=== PATIENT | male | born 1965 | race African-American/Black ===

== ENCOUNTER 2017-12-16 13:56 | Inpatient (IN) | payer MEDICAID ==
[~2017-12-16] VITALS: Ht 162.6 cm; Wt 59.1 kg
[~2017-12-16 13:56] MED LIST: ASPI-1159 PO; AZIT500T5 PO; CALC667C4 PO; CLON0.3T PO; FOLI1TAB33 PO; HYDR100T31 PO; METO-539 PO; MINO2.5T19 PO; Metoprolol Tartrate PO; Nifedipine PO; PHEN100C12 PO; RANI150T7 PO
[2017-12-16] MEDS ORDERED: LIDOCAINE HCL/PF 1% 2ML VIAL ONE (14:04)
[2017-12-16 14:27] LABS: BASOPHILS % 0.6 % (0.0-2.0); EOSINOPHILS % 2.8 % (0.0-5.0); HEMATOCRIT. 34.2 % (42.0-52.0); HEMOGLOBIN. 10.6 g/dL (14.0-18.0); LYMPHOCYTES % 41.2 % (20.0-50.0); MEAN CORPUSCULAR HEMOGLOBIN 30.8 pg (28.0-32.0); MEAN CORPUSCULAR VOLUME 99.1 fL (80.0-94.0); MEAN PLATELET VOLUME 8.2 fl (7.4-10.4); MONOCYTES % 5.7 % (2.0-8.0); NEUTROPHILS % 49.7 % (40.0-76.0); PLATELET 248 x1000/uL (130-400); RED BLOOD CELL COUNT 3.45 mill/uL (4.7-6.1)
[2017-12-16 14:30] LABS: CHLORIDE 94 mEq/L (98-107)
[2017-12-16 14:57] LABS: BG BASE EXCESS -0.8 mmol/L (-2.0-2.0); BG BILEVEL POS AIRWAY PRESSURE ST=15/5; BG CARBOXYHEMOGLOBIN 2.1 % (0.5-1.5); BG DEOXYHEMOGLOBIN 10.2 % (0.0-5.0); BG FRACTION INSPIRED OXYGEN 80; BG HCO3 ACT 25.4 mmol/L (22.0-26.0); BG METHEMOGLOBIN 0.2 % (0.0-1.5); BG OXYGEN SATURATION 89.6 % (92.0-98.5); BG OXYHEMOGLOBIN 87.5 % (94.0-97.0); BG PCO2 49.3 mmHg (35.0-45.0); BG PO2 65.6 mmHg (75.0-100.0); BG PRESSURE SUPPORT 10; BG SAMPLE SITE RIGHT BRACHIAL; BG VENT MODE MASK - BIPAP; BG VENT RATE 14 set
[2017-12-16] MEDS ORDERED: CLONIDINE 0.1MG TABLET PO PRN (16:30)
[2017-12-16] MEDS ORDERED: GUAIFENESIN 200MG/10ML SUGAR FREE UDC PO PRN (16:30)
[2017-12-16] MEDS ORDERED: HYDROMORPHONE HCL/PF 2MG/ML CPJ IV PRN (16:30)
[2017-12-16] MEDS ORDERED: NA PHOS,M-B/NA PHOS,DI-BA ENEMA 118ML PR PRN (16:30)
[2017-12-16] MEDS ORDERED: ENOXAPARIN 40MG/0.4ML SYR SUBCUT SCH (16:30)
[2017-12-16] MEDS ORDERED: IPRATROPIUM/ALBUTEROL 0.5-3(2.5)MG/3ML NEB INH PRN (16:30)
[2017-12-16] MEDS ORDERED: DIPHENHYDRAMINE 50MG/ML VIAL IV PRN (16:30)
[2017-12-16] MEDS ORDERED: MAGNESIUM/ALUMINUM HYDROXIDE/SIMETHICONE 30ML UDC PO PRN (16:30)
[2017-12-16] MEDS ORDERED: LEVOFLOXACIN 500MG PREMIX 100 ML IV SCH ×2 (16:30→20:00)
[2017-12-16] MEDS ORDERED: DOCUSATE SODIUM 100MG CAPSULE PO PRN (16:30)
[2017-12-16] MEDS ORDERED: ONDANSETRON HCL 4MG/2ML INJ IV PRN (16:30)
[2017-12-16] MEDS ORDERED: ACETAMINOPHEN 325MG TABLET PO PRN (16:30)
[2017-12-16 16:45] VITALS: BP 156/88
[2017-12-16 18:00] VITALS: BP 157/92
[2017-12-16 18:58] LABS: BG BASE EXCESS -0.6 mmol/L (-2.0-2.0); BG BILEVEL POS AIRWAY PRESSURE 15/5; BG CARBOXYHEMOGLOBIN 1.9 % (0.5-1.5); BG DEOXYHEMOGLOBIN 13.4 % (0.0-5.0); BG FRACTION INSPIRED OXYGEN 70; BG HCO3 ACT 24.1 mmol/L (22.0-26.0); BG METHEMOGLOBIN 0.1 % (0.0-1.5); BG OXYGEN SATURATION 86.3 % (92.0-98.5); BG OXYHEMOGLOBIN 84.6 % (94.0-97.0); BG PCO2 39.5 mmHg (35.0-45.0); BG PH 7.403 (7.350-7.450); BG PO2 55.8 mmHg (75.0-100.0); BG SAMPLE SITE RIGHT BRACHIAL; BG TOTAL HEMOGLOBIN 9.2 g/dL (12.0-18.0); BG VENT MODE S/T
[2017-12-16 20:00] VITALS: BP 169/98
[2017-12-16 22:00] VITALS: BP 189/98
[2017-12-16] MEDS: ENOXAPARIN 30MG/0.3ML SYR SUBCUT SCH (23:00)
[2017-12-17] VITALS (11 sets, daily range): BP systolic 132–157; BP diastolic 61–88
[2017-12-17] MEDS: IPRATROPIUM/ALBUTEROL 0.5-3(2.5)MG/3ML NEB HHN SCH ×7 (00:49→20:19)
[2017-12-17 06:16] LABS: EOSINOPHILS % 0.5 % (0.0-5.0); HEMATOCRIT. 25.4 % (42.0-52.0); HEMOGLOBIN. 8.4 g/dL (14.0-18.0); LYMPHOCYTES % 13.7 % (20.0-50.0); MEAN CORPUSCULAR HEMOGLOBIN 31.2 pg (28.0-32.0); MEAN CORPUSCULAR VOLUME 94.8 fL (80.0-94.0); MEAN PLATELET VOLUME 8.2 fl (7.4-10.4); MONOCYTES % 6.4 % (2.0-8.0); NEUTROPHILS % 78.4 % (40.0-76.0); PLATELET 176 x1000/uL (130-400); RED BLOOD CELL COUNT 2.68 mill/uL (4.7-6.1); RED CELL DISTRIBUTION WIDTH 17.9 % (11.6-14.6)
[2017-12-17 06:22] LABS: CHLORIDE 97 mEq/L (98-107)
[2017-12-17 06:36] LABS: LDL CHOLESTEROL 53 mg/dL (5-100)
[2017-12-17 06:37] LABS: HDL CHOLESTEROL 35 mg/dL (40-59); T4 FREE 1.22 ng/dL (0.76-1.46)
[2017-12-17] MEDS: BUDESONIDE 0.5MG/2ML NEB HHN SCH ×3 (08:42→20:19)
[2017-12-17] MEDS: ASPIRIN 81MG EC TABLET PO SCH (09:01)
[2017-12-17 11:58] LABS: BG BASE EXCESS 3.1 mmol/L (-2.0-2.0); BG CARBOXYHEMOGLOBIN 0.7 % (0.5-1.5); BG DEOXYHEMOGLOBIN 8.6 % (0.0-5.0); BG HCO3 ACT 27.8 mmol/L (22.0-26.0); BG METHEMOGLOBIN 0.2 % (0.0-1.5); BG OXYGEN SATURATION 91.3 % (92.0-98.5); BG OXYHEMOGLOBIN 90.5 % (94.0-97.0); BG PCO2 43.1 mmHg (35.0-45.0); BG PH 7.427 (7.350-7.450); BG PO2 66.4 mmHg (75.0-100.0); BG SAMPLE SITE RIGHT BRACHIAL; BG TOTAL HEMOGLOBIN 8.4 g/dL (12.0-18.0); BG VENT MODE MASK - VENTI
[2017-12-17] MEDS ORDERED: LIDOCAINE HCL/PF 1% 2ML VIAL ONE (14:01)
[2017-12-17] MEDS: HYDROCODONE/ACETAMINOPHEN 5/325MG TABLET PO PRN (14:57)
[2017-12-17] MEDS: ENOXAPARIN 30MG/0.3ML SYR SUBCUT SCH (20:25)
[2017-12-17] MEDS: HYDRALAZINE HCL 25MG TABLET PO SCH (23:02)
[2017-12-17] MEDS: CLONIDINE 0.1MG TABLET PO SCH (23:03)
[2017-12-18] VITALS (13 sets, daily range): BP systolic 103–150; BP diastolic 57–83
[2017-12-18] MEDS: IPRATROPIUM/ALBUTEROL 0.5-3(2.5)MG/3ML NEB HHN SCH ×6 (00:14→20:09)
[2017-12-18] MEDS: HYDRALAZINE HCL 25MG TABLET PO SCH ×3 (06:32→21:18)
[2017-12-18] MEDS: CLONIDINE 0.1MG TABLET PO SCH ×3 (06:32→21:18)
[2017-12-18] MEDS: BUDESONIDE 0.5MG/2ML NEB HHN SCH ×2 (07:35→20:09)
[2017-12-18] MEDS: NIFEDIPINE XL 60MG TAB PO SCH (09:38)
[2017-12-18] MEDS: ASPIRIN 81MG EC TABLET PO SCH (09:38)
[2017-12-18] MEDS: HYDROCODONE/ACETAMINOPHEN 5/325MG TABLET PO PRN ×3 (10:11→21:31)
[2017-12-18] MEDS ORDERED: LEVOFLOXACIN 250MG PREMIX 50 ML IV SCH (11:00)
[2017-12-18] MEDS: ENOXAPARIN 30MG/0.3ML SYR SUBCUT SCH (21:00)
[2017-12-18] MEDS: LORAZEPAM 2MG/ML CPJ IV PRN (21:31)
[2017-12-19] VITALS (11 sets, daily range): BP systolic 117–165; BP diastolic 66–91
[2017-12-19] MEDS: IPRATROPIUM/ALBUTEROL 0.5-3(2.5)MG/3ML NEB HHN SCH ×6 (00:16→20:21)
[2017-12-19] MEDS: HYDRALAZINE HCL 25MG TABLET PO SCH ×3 (06:00→22:00)
[2017-12-19] MEDS: CLONIDINE 0.1MG TABLET PO SCH ×3 (06:00→22:00)
[2017-12-19] MEDS: BUDESONIDE 0.5MG/2ML NEB HHN SCH ×2 (08:08→20:29)
[2017-12-19] MEDS: HYDROCODONE/ACETAMINOPHEN 5/325MG TABLET PO PRN ×2 (08:10→18:37)
[2017-12-19 10:32] LABS: EOSINOPHILS % 8.9 % (0.0-5.0); HEMATOCRIT. 23.2 % (42.0-52.0); HEMOGLOBIN. 7.7 g/dL (14.0-18.0); LYMPHOCYTES % 16.4 % (20.0-50.0); MEAN CORPUSCULAR HEMOGLOBIN 30.9 pg (28.0-32.0); MEAN CORPUSCULAR VOLUME 93.5 fL (80.0-94.0); MEAN PLATELET VOLUME 7.7 fl (7.4-10.4); MONOCYTES % 8.1 % (2.0-8.0); NEUTROPHILS % 65.6 % (40.0-76.0); PLATELET 205 x1000/uL (130-400); RED BLOOD CELL COUNT 2.48 mill/uL (4.7-6.1); RED CELL DISTRIBUTION WIDTH 17.6 % (11.6-14.6)
[2017-12-19] MEDS: ASPIRIN 81MG EC TABLET PO SCH (16:50)
[2017-12-19] MEDS: NIFEDIPINE XL 60MG TAB PO SCH (16:51)
[2017-12-19] MEDS: ENOXAPARIN 30MG/0.3ML SYR SUBCUT SCH (21:14)
[2017-12-20] VITALS (10 sets, daily range): BP systolic 114–142; BP diastolic 62–77
[2017-12-20] MEDS: IPRATROPIUM/ALBUTEROL 0.5-3(2.5)MG/3ML NEB HHN SCH ×4 (00:06→11:58)
[2017-12-20] MEDS: LORAZEPAM 2MG/ML CPJ IV PRN (01:19)
[2017-12-20] MEDS: CLONIDINE 0.1MG TABLET PO SCH ×2 (06:00→12:24)
[2017-12-20] MEDS: HYDRALAZINE HCL 25MG TABLET PO SCH ×2 (06:00→12:25)
[2017-12-20 06:41] LABS: BASOPHILS % 1.1 % (0.0-2.0); EOSINOPHILS % 10.2 % (0.0-5.0); HEMATOCRIT. 24.1 % (42.0-52.0); LYMPHOCYTES % 20.9 % (20.0-50.0); MEAN CORPUSCULAR HEMOGLOBIN 31.1 pg (28.0-32.0); MEAN CORPUSCULAR VOLUME 94.1 fL (80.0-94.0); MEAN PLATELET VOLUME 7.8 fl (7.4-10.4); MONOCYTES % 8.8 % (2.0-8.0); PLATELET 227 x1000/uL (130-400); RED BLOOD CELL COUNT 2.56 mill/uL (4.7-6.1); RED CELL DISTRIBUTION WIDTH 17.6 % (11.6-14.6)
[2017-12-20] MEDS: ASPIRIN 81MG EC TABLET PO SCH (09:52)
[2017-12-20] MEDS: NIFEDIPINE XL 60MG TAB PO SCH (09:52)
[2017-12-20] MEDS ORDERED: LEVOFLOXACIN 250MG TABLET PO SCH (11:00)
[2017-12-20] MEDS: HYDROCODONE/ACETAMINOPHEN 5/325MG TABLET PO PRN (12:25)
== END 2017-12-20 15:30 | disposition home or self-care (01) | DRG 425 ==
LOC: ER 13:56 → EDBEDREQSVC 14:57 → 5EST 15:28 → EDBEDREQ 15:30 → ENRESERV 15:48
PROVIDERS: ADMIT Internal Medicine; ATTEND Internal Medicine
PROC: 5A09357 Assistance with Respiratory Ventilation, Less than 24 Consecutive Hours, Continuous Positive Airway Pressure (ICD-10-PCS; principal; 2017-12-16)
PROC: 5A1D70Z Performance of Urinary Filtration, Intermittent, Less than 6 Hours Per Day (ICD-10-PCS; 2017-12-16)
PROC: 5A09357 Assistance with Respiratory Ventilation, Less than 24 Consecutive Hours, Continuous Positive Airway Pressure (ICD-10-PCS; 2017-12-17)
PROC: 5A1D70Z Performance of Urinary Filtration, Intermittent, Less than 6 Hours Per Day (ICD-10-PCS; 2017-12-17)
PROC: 5A1D70Z Performance of Urinary Filtration, Intermittent, Less than 6 Hours Per Day (ICD-10-PCS; 2017-12-19)
DX: E87.5 Hyperkalemia (principal); J96.01 Acute respiratory failure with hypoxia; I13.2 Hypertensive heart and chronic kidney disease with heart failure and with stage 5 chronic kidney disease, or end stage renal disease; E87.2 Acidosis; R65.10 Systemic inflammatory response syndrome (SIRS) of non-infectious origin without acute organ dysfunction; J96.02 Acute respiratory failure with hypercapnia; E46 Unspecified protein-calorie malnutrition; N18.6 End stage renal disease; Z86.74 Personal history of sudden cardiac arrest; I50.9 Heart failure, unspecified; D64.9 Anemia, unspecified; G40.909 Epilepsy, unspecified, not intractable, without status epilepticus; I25.10 Atherosclerotic heart disease of native coronary artery without angina pectoris; K21.9 Gastro-esophageal reflux disease without esophagitis; Z79.82 Long term (current) use of aspirin; Z82.49 Family history of ischemic heart disease and other diseases of the circulatory system; Z86.73 Personal history of transient ischemic attack (TIA), and cerebral infarction without residual deficits; Z99.2 Dependence on renal dialysis; I25.2 Old myocardial infarction; Z88.8 Allergy status to other drugs, medicaments and biological substances; Z88.0 Allergy status to penicillin; Z79.2 Long term (current) use of antibiotics; Z79.899 Other long term (current) drug therapy; Z68.22 Body mass index [BMI] 22.0-22.9, adult
CPT/HCPCS: 36415; 36600; 71045; 80048; 80053; 80061; 82375; 82805; 83880; 84439; 84443; 84484; 85025; 93005; 93306; 94640; 94660; 99291; J1170; J1650; J1956; J2060; J3490; J7030; J7050; J7620; J7626

== ENCOUNTER 2018-01-15 19:57 | Inpatient (IN) | payer MEDICAID ==
[~2018-01-15] VITALS: Ht 162.6 cm; Wt 57.2 kg
[2018-01-16] VITALS (7 sets, daily range): BP systolic 95–143; BP diastolic 35–70
[2018-01-16] MEDS ORDERED: SODIUM CHLORIDE 0.9% 500 ML IV ONE (00:09)
[2018-01-16] MEDS ORDERED: VANCOMYCIN 1 G PREMIX 200 ML IV ONE (00:15)
[2018-01-16] MEDS ORDERED: LEVOFLOXACIN 750MG PREMIX 150 ML IV ONE (00:15)
[2018-01-16] MEDS ORDERED: LEVETIRACETAM 500MG PREMIX 100 ML IV ONE (00:30)
[2018-01-16 01:38] LABS: BASOPHILS % 1.4 % (0.0-2.0); HEMATOCRIT. 31.7 % (42.0-52.0); HEMOGLOBIN. 10.3 g/dL (14.0-18.0); LYMPHOCYTES % 28.2 % (20.0-50.0); MEAN CORPUSCULAR HEMOGLOBIN 29.9 pg (28.0-32.0); MEAN CORPUSCULAR VOLUME 92.5 fL (80.0-94.0); MEAN PLATELET VOLUME 7.4 fl (7.4-10.4); MONOCYTES % 9.9 % (2.0-8.0); NEUTROPHILS % 54.5 % (40.0-76.0); PLATELET 245 x1000/uL (130-400); RED BLOOD CELL COUNT 3.43 mill/uL (4.7-6.1); RED CELL DISTRIBUTION WIDTH 17.2 % (11.6-14.6)
[2018-01-16 01:47] LABS: INR 1.2; PROTHROMBIN TIME 11.7 sec (9.1-11.1)
[2018-01-16 01:51] LABS: CHLORIDE 98 mEq/L (98-107); ETHANOL BLOOD < 10 mg/dL
[2018-01-16] MEDS ORDERED: GABA300S PO (04:12)
[2018-01-16] MEDS ORDERED: HYDR-3280 PO (04:12)
[2018-01-16] MEDS ORDERED: CLONIDINE 0.1MG TABLET PO PRN (05:15)
[2018-01-16 08:29] LABS: HEMATOCRIT 31.5 % (42.0-52.0); HEMOGLOBIN 10.2 g/dL (14.0-18.0); MEAN CORPUSCULAR VOLUME 92.1 fL (80.0-94.0); PLATELET 223 x1000/uL (130-400); RED BLOOD CELL COUNT 3.42 mill/uL (4.7-6.1); RED CELL DISTRIBUTION WIDTH 17.4 % (11.6-14.6)
[2018-01-16] MEDS: HEPARIN 5000 UNITS/ML VIAL SUBCUT SCH ×2 (08:37→21:00)
[2018-01-16 08:44] LABS: CREATINE KINASE MB FRACTION 3.4 ng/mL (0.5-3.6)
[2018-01-16] MEDS: HYDROCODONE/ACETAMINOPHEN 5/325MG TABLET PO PRN ×2 (08:44→20:10)
[2018-01-16] MEDS ORDERED: AZITHROMYCIN 500 MG TABLET PO SCH (13:00)
[2018-01-16] MEDS: GABAPENTIN 100MG CAPSULE PO SCH (13:33)
[2018-01-16] MEDS: PHENYTOIN SODIUM EXTENDED 100MG CAPSULE PO SCH (13:33)
[2018-01-16] MEDS: HYDRALAZINE HCL 100MG TABLET PO SCH ×2 (13:34→21:24)
[2018-01-16] MEDS: CALCIUM ACETATE 667MG CAPSULE PO SCH ×2 (13:34→18:10)
[2018-01-16 15:40] LABS: CREATINE KINASE MB FRACTION 3.3 ng/mL (0.5-3.6)
[2018-01-16 16:47] LABS: *AMPHETAMINES SCREEN URINE NEGATIVE (NEGATIVE); *BARBITURATES SCREEN URINE NEGATIVE (NEGATIVE); *BENZODIAZEPINES SCREEN URINE NEGATIVE (NEGATIVE); *COCAINE SCREEN URINE NEGATIVE (NEGATIVE); CANNABINOID URINE SCREEN PRESUMTIVE POSITIVE (NEGATIVE); METHADONE URINE SCREEN NEGATIVE (NEGATIVE); OPIATES URINE SCREEN PRESUMTIVE POSITIVE (NEGATIVE); PHENCYCLIDINE URINE SCREEN NEGATIVE (NEGATIVE)
[2018-01-16] MEDS: NIFEDIPINE XL 60MG TAB PO SCH (21:00)
[2018-01-16] MEDS: METOPROLOL TARTRATE 50MG TABLET PO SCH (21:22)
[2018-01-17] VITALS (7 sets, daily range): BP systolic 109–137; BP diastolic 40–68
[2018-01-17 00:14] LABS: CREATINE KINASE 27 IU/L (39-308)
[2018-01-17] MEDS: GABAPENTIN 100MG CAPSULE PO SCH ×3 (04:06→14:17)
[2018-01-17] MEDS: HYDRALAZINE HCL 100MG TABLET PO SCH ×2 (05:28→14:17)
[2018-01-17 07:07] LABS: CHLORIDE 97 mEq/L (98-107)
[2018-01-17 07:09] LABS: BASOPHILS % 1.3 % (0.0-2.0); EOSINOPHILS % 7.8 % (0.0-5.0); HEMATOCRIT. 33.1 % (42.0-52.0); HEMOGLOBIN. 10.7 g/dL (14.0-18.0); LYMPHOCYTES % 34.8 % (20.0-50.0); MEAN CORPUSCULAR HEMOGLOBIN 29.6 pg (28.0-32.0); MEAN CORPUSCULAR VOLUME 91.2 fL (80.0-94.0); MEAN PLATELET VOLUME 7.7 fl (7.4-10.4); NEUTROPHILS % 43.1 % (40.0-76.0); PLATELET 240 x1000/uL (130-400); RED BLOOD CELL COUNT 3.62 mill/uL (4.7-6.1); RED CELL DISTRIBUTION WIDTH 17.1 % (11.6-14.6)
[2018-01-17 07:25] LABS: HDL CHOLESTEROL 44 mg/dL (40-59); LDL CHOLESTEROL 64 mg/dL (5-100)
[2018-01-17] MEDS: CALCIUM ACETATE 667MG CAPSULE PO SCH ×2 (07:50→11:54)
[2018-01-17] MEDS: METOPROLOL TARTRATE 50MG TABLET PO SCH (08:40)
[2018-01-17] MEDS: NIFEDIPINE XL 60MG TAB PO SCH (08:40)
[2018-01-17] MEDS ORDERED: ASPIRIN 81MG TABLET PO SCH (09:00)
[2018-01-17] MEDS ORDERED: MINOXIDIL 2.5MG TABLET PO SCH (09:00)
[2018-01-17] MEDS: HEPARIN 5000 UNITS/ML VIAL SUBCUT SCH (09:00)
[2018-01-17] MEDS: PHENYTOIN SODIUM EXTENDED 100MG CAPSULE PO SCH (11:54)
[2018-01-17] MEDS: HYDROCODONE/ACETAMINOPHEN 5/325MG TABLET PO PRN (12:01)
== END 2018-01-17 16:50 | disposition home or self-care (01) | DRG 203 ==
LOC: ER 19:57 → 6WST 01-16 02:07 → EDBEDREQSVC 01-16 02:10 → EDBEDREQTM 01-16 02:10 → EDBEDREQ 01-16 02:10 → ENRESERV 01-16 02:21
PROVIDERS: ADMIT Internal Medicine; ATTEND Internal Medicine
PROC: 5A1D70Z Performance of Urinary Filtration, Intermittent, Less than 6 Hours Per Day (ICD-10-PCS; principal; 2018-01-17)
DX: R07.89 Other chest pain (principal); E43 Unspecified severe protein-calorie malnutrition; I13.2 Hypertensive heart and chronic kidney disease with heart failure and with stage 5 chronic kidney disease, or end stage renal disease; N18.6 End stage renal disease; I50.30 Unspecified diastolic (congestive) heart failure; J98.11 Atelectasis; E78.00 Pure hypercholesterolemia, unspecified; G40.909 Epilepsy, unspecified, not intractable, without status epilepticus; D63.1 Anemia in chronic kidney disease; Z68.21 Body mass index [BMI] 21.0-21.9, adult; Z88.0 Allergy status to penicillin; Z88.8 Allergy status to other drugs, medicaments and biological substances; Z99.2 Dependence on renal dialysis; Z79.82 Long term (current) use of aspirin; Z79.899 Other long term (current) drug therapy; Z86.73 Personal history of transient ischemic attack (TIA), and cerebral infarction without residual deficits
CPT/HCPCS: 36415; 71045; 80048; 80061; 80305; 82550; 82553; 82962; 83605; 83735; 83880; 84145; 84484; 85027; 85379; 87077; 87186; 93005; 96365; 96367; 99285; G0482; J1644; J1953; J1956; J3370; J7030; J7040

== ENCOUNTER 2018-02-19 08:33 | Inpatient (IN) | payer MEDICAID ==
[~2018-02-19] VITALS: Ht 152.4 cm; Wt 58.5 kg
[~2018-02-19 08:33] MED LIST changes: +GABA300S PO; +HYDR-3280 PO
[2018-02-19] MEDS ORDERED: VANCOMYCIN 1 G PREMIX 200 ML IV ONE (09:30)
[2018-02-19] MEDS ORDERED: AZTREONAM 2 GM in DEXT 5% WATER 100 ML IV SCH ×2 (09:30→11:30)
[2018-02-19 10:10] LABS: HEMOGLOBIN. 12.2 g/dL (14.0-18.0); MEAN CORPUSCULAR HEMOGLOBIN 28.6 pg (28.0-32.0); MEAN PLATELET VOLUME 8.1 fl (7.4-10.4); PLATELET 184 x1000/uL (130-400); RED BLOOD CELL COUNT 4.27 mill/uL (4.7-6.1); RED CELL DISTRIBUTION WIDTH 17.8 % (11.6-14.6)
[2018-02-19 10:14] LABS: CHLORIDE 93 mEq/L (98-107)
[2018-02-19 10:20] LABS: INR 1.2; PROTHROMBIN TIME 12.4 sec (9.1-11.1)
[2018-02-19 11:20] LABS: PLATELET ESTIMATE NORMAL
[2018-02-19] MEDS ORDERED: LEVOFLOXACIN 250MG PREMIX 50 ML IV NR (11:30)
[2018-02-19] MEDS ORDERED: SODIUM POLYSTYRENE SULFONATE 15 G/60 ML BOT PO ONE (12:00)
[2018-02-19] MEDS ORDERED: SODIUM BICARBONATE 8.4% 1 MEQ/ML 50ML SYR IV ONE (12:00)
[2018-02-19] MEDS ORDERED: CALCIUM CHLORIDE 1GM/10ML SYR IV ONE (12:00)
[2018-02-19] MEDS ORDERED: INSULIN REGULAR (HUMULIN R) 300UNITS/3ML IV ONE (12:00)
[2018-02-19] MEDS ORDERED: DEXTROSE 50% WATER 50ML SYRINGE IV ONE ×3 (12:00→14:33)
[2018-02-19 16:00] VITALS: BP 159/78
[2018-02-19 17:15] VITALS: BP 159/78
[2018-02-19] MEDS ORDERED: ONDANSETRON HCL 4MG/2ML INJ IV PRN (17:15)
[2018-02-19] MEDS ORDERED: ACETAMINOPHEN 325MG TABLET PO PRN (17:15)
[2018-02-19 20:00] VITALS: BP 141/67
[2018-02-20 07:31] LABS: HEMATOCRIT. 38.5 % (42.0-52.0); HEMOGLOBIN. 12.3 g/dL (14.0-18.0); MEAN CORPUSCULAR HEMOGLOBIN 28.4 pg (28.0-32.0); MEAN CORPUSCULAR VOLUME 89.1 fL (80.0-94.0); PLATELET 171 x1000/uL (130-400); RED BLOOD CELL COUNT 4.32 mill/uL (4.7-6.1); RED CELL DISTRIBUTION WIDTH 16.9 % (11.6-14.6)
[2018-02-20 08:00] VITALS: BP 147/74
[2018-02-20 12:00] VITALS: BP 154/85
[2018-02-20 12:46] LABS: PLATELET ESTIMATE NORMAL
[2018-02-20] MEDS ORDERED: KEPPSOL MT (14:59)
[2018-02-20 16:00] VITALS: BP 163/90
[2018-02-20] MEDS: CLONIDINE 0.3MG TABLET PO SCH (18:16)
[2018-02-20] MEDS: GABAPENTIN 100MG CAPSULE PO SCH (18:16)
[2018-02-20] MEDS: FOLIC ACID/VITAMIN B COMP W-C TABLET PO SCH (18:16)
[2018-02-20] MEDS: CALCIUM ACETATE 667MG CAPSULE PO SCH (18:17)
[2018-02-20] MEDS: ASPIRIN 81MG TABLET PO SCH (20:41)
[2018-02-20] MEDS: METOPROLOL TARTRATE 50MG TABLET PO SCH (20:42)
[2018-02-20] MEDS: LEVETIRACETAM 250MG TABLET PO SCH (20:42)
[2018-02-20] MEDS: HYDRALAZINE HCL 50MG TABLET PO SCH (20:42)
[2018-02-20] MEDS ORDERED: HYDRALAZINE HCL 100 MG PO SCH (22:00)
[2018-02-21] MEDS: HYDRALAZINE HCL 50MG TABLET PO SCH ×2 (05:56→14:31)
[2018-02-21] MEDS: HYDROCODONE/ACETAMINOPHEN 5/325MG TABLET PO PRN ×2 (06:49→12:56)
[2018-02-21 08:00] VITALS: BP 124/56
[2018-02-21 08:40] VITALS: BP 124/56
[2018-02-21] MEDS ORDERED: MINOXIDIL 2.5MG TABLET PO SCH (09:00)
[2018-02-21] MEDS: ASPIRIN 81MG TABLET PO SCH (09:11)
[2018-02-21] MEDS: CALCIUM ACETATE 667MG CAPSULE PO SCH ×2 (09:11→12:55)
[2018-02-21] MEDS: LEVETIRACETAM 250MG TABLET PO SCH (09:11)
[2018-02-21] MEDS: GABAPENTIN 100MG CAPSULE PO SCH ×2 (09:11→12:55)
[2018-02-21] MEDS: CLONIDINE 0.3MG TABLET PO SCH ×2 (09:12→12:55)
[2018-02-21] MEDS: FOLIC ACID/VITAMIN B COMP W-C TABLET PO SCH (09:12)
[2018-02-21] MEDS: METOPROLOL TARTRATE 50MG TABLET PO SCH (09:12)
[2018-02-21] MEDS ORDERED: LEVOFLOXACIN 250MG PREMIX 50 ML IV SCH (11:00)
[2018-02-21 12:36] VITALS: BP 122/68
[2018-02-21] MEDS ORDERED: LEVOFLOXACIN 250MG PREMIX 50 ML IV NR (14:00)
[2018-02-21 14:44] VITALS: BP 130/70
== END 2018-02-21 16:50 | disposition home or self-care (01) | DRG 145 ==
LOC: ER 08:33 → 6WST 12:41 → ENRESERV 15:36
PROVIDERS: ADMIT Internal Medicine; ATTEND Internal Medicine
PROC: 5A1D70Z Performance of Urinary Filtration, Intermittent, Less than 6 Hours Per Day (ICD-10-PCS; principal; 2018-02-19)
PROC: 5A1D70Z Performance of Urinary Filtration, Intermittent, Less than 6 Hours Per Day (ICD-10-PCS; 2018-02-21)
DX: J20.9 Acute bronchitis, unspecified (principal); I13.2 Hypertensive heart and chronic kidney disease with heart failure and with stage 5 chronic kidney disease, or end stage renal disease; E87.5 Hyperkalemia; N18.6 End stage renal disease; D64.9 Anemia, unspecified; D72.825 Bandemia; G40.909 Epilepsy, unspecified, not intractable, without status epilepticus; I16.0 Hypertensive urgency; I50.9 Heart failure, unspecified; Z86.73 Personal history of transient ischemic attack (TIA), and cerebral infarction without residual deficits; Z99.2 Dependence on renal dialysis; Z88.0 Allergy status to penicillin; Z88.8 Allergy status to other drugs, medicaments and biological substances
CPT/HCPCS: 36415; 71045; 80048; 82962; 83605; 84145; 84484; 87804; 93005; 96365; 96366; 96367; 96375; 99285; J1815; J1956; J3370; J3490; J7050; J7060

== ENCOUNTER 2018-03-17 11:06 | Emergency (ER) | payer MEDICAID ==
[~2018-03-17] VITALS: Ht 162.6 cm; Wt 59.0 kg
[~2018-03-17 11:06] MED LIST changes: -AZIT500T5 PO; +KEPPSOL MT; -METO-539 PO; -Nifedipine PO; -PHEN100C12 PO; -RANI150T7 PO
[2018-03-17 12:47] LABS: BASOPHILS % 0.8 % (0.0-2.0); EOSINOPHILS % 3.1 % (0.0-5.0); HEMATOCRIT. 44.6 % (42.0-52.0); HEMOGLOBIN. 13.9 g/dL (14.0-18.0); LYMPHOCYTES % 21.8 % (20.0-50.0); MEAN CORPUSCULAR HEMOGLOBIN 27.4 pg (28.0-32.0); MEAN CORPUSCULAR VOLUME 87.8 fL (80.0-94.0); MONOCYTES % 10.6 % (2.0-8.0); NEUTROPHILS % 63.7 % (40.0-76.0); PLATELET 161 x1000/uL (130-400); RED BLOOD CELL COUNT 5.08 mill/uL (4.7-6.1); RED CELL DISTRIBUTION WIDTH 18.5 % (11.6-14.6)
[2018-03-17 12:48] LABS: CHLORIDE 90 mEq/L (98-107)
[2018-03-17 12:51] LABS: INR 1.2
[2018-03-17] MEDS ORDERED: IOHEXOL-300 100 ML BOTTLE ONE (18:26)
[2018-03-17 21:47] VITALS: BP 141/81
== END 2018-03-18 01:32 | disposition home or self-care (01) ==
LOC: ER 11:06
DX: K59.09 Other constipation (principal); E87.2 Acidosis; I13.2 Hypertensive heart and chronic kidney disease with heart failure and with stage 5 chronic kidney disease, or end stage renal disease; N18.6 End stage renal disease; I50.9 Heart failure, unspecified; G40.909 Epilepsy, unspecified, not intractable, without status epilepticus; Z99.2 Dependence on renal dialysis; Z86.73 Personal history of transient ischemic attack (TIA), and cerebral infarction without residual deficits; Z87.891 Personal history of nicotine dependence; Z88.8 Allergy status to other drugs, medicaments and biological substances; Z88.0 Allergy status to penicillin; Z79.899 Other long term (current) drug therapy; Z79.82 Long term (current) use of aspirin
CPT/HCPCS: 36415; 74018; 74177; 80053; 83605; 83690; 84484; 85025; 85610; 93005; 99284; Q9967

== ENCOUNTER 2018-09-11 13:22 | Inpatient (IN) | payer MEDICAID ==
[~2018-09-11] VITALS: Ht 170.2 cm; Wt 63.0 kg
[~2018-09-11 13:22] MED LIST changes: -ASPI-1159 PO; +ASPI-1393 PO
[2018-09-11] MEDS ORDERED: ONDANSETRON HCL 4MG/2ML INJ IV STA (15:48)
[2018-09-11] MEDS ORDERED: SODIUM CHLORIDE 0.9% 500 ML IV ONE (16:00)
[2018-09-11 16:24] LABS: BASOPHILS % 0.9 % (0.0-2.0); EOSINOPHILS % 2.8 % (0.0-5.0); HEMOGLOBIN. 10.1 g/dL (14.0-18.0); LYMPHOCYTES % 17.2 % (20.0-50.0); MEAN PLATELET VOLUME 8.7 fl (7.4-10.4); NEUTROPHILS % 66.1 % (40.0-76.0); PLATELET 133 x1000/uL (130-400); RED BLOOD CELL COUNT 3.49 mill/uL (4.7-6.1); RED CELL DISTRIBUTION WIDTH 16.1 % (11.6-14.6)
[2018-09-11 16:27] LABS: CHLORIDE 94 mEq/L (98-107)
[2018-09-11 16:28] LABS: INR 1.1; PROTHROMBIN TIME 11.3 sec (9.6-11.0)
[2018-09-11 20:00] VITALS: BP 116/54
[2018-09-11] MEDS ORDERED: GUAIFENESIN 200MG/10ML SUGAR FREE UDC PO PRN (21:45)
[2018-09-11] MEDS ORDERED: MAGNESIUM/ALUMINUM HYDROXIDE/SIMETHICONE 30ML UDC PO PRN (21:45)
[2018-09-11 22:00] VITALS: BP 116/54
[2018-09-11] MEDS ORDERED: LEVOFLOXACIN 500MG PREMIX 100 ML IV SCH (23:00)
[2018-09-12] VITALS: BP 118/62
[2018-09-12 04:00] VITALS: BP 133/61
[2018-09-12 06:27] LABS: BASOPHILS % 0.7 % (0.0-2.0); EOSINOPHILS % 2.1 % (0.0-5.0); HEMATOCRIT. 26.8 % (42.0-52.0); HEMOGLOBIN. 8.9 g/dL (14.0-18.0); LYMPHOCYTES % 11.7 % (20.0-50.0); MEAN CORPUSCULAR HEMOGLOBIN 29.4 pg (28.0-32.0); MEAN CORPUSCULAR VOLUME 89.1 fL (80.0-94.0); MEAN PLATELET VOLUME 8.7 fl (7.4-10.4); MONOCYTES % 10.2 % (2.0-8.0); NEUTROPHILS % 75.3 % (40.0-76.0); PLATELET 115 x1000/uL (130-400); RED BLOOD CELL COUNT 3.01 mill/uL (4.7-6.1); RED CELL DISTRIBUTION WIDTH 16.2 % (11.6-14.6)
[2018-09-12 06:31] LABS: CHLORIDE 95 mEq/L (98-107)
[2018-09-12] MEDS: ACETAMINOPHEN 325MG TABLET PO PRN ×2 (06:50→20:14)
[2018-09-12 06:55] LABS: LDL CHOLESTEROL 46 mg/dL (5-100)
[2018-09-12 06:56] LABS: HDL CHOLESTEROL 38 mg/dL (40-59)
[2018-09-12 06:59] LABS: T4 FREE 1.02 ng/dL (0.76-1.46)
[2018-09-12 08:00] VITALS: BP 133/69
[2018-09-12] MEDS: LEVETIRACETAM 500MG TABLET PO SCH ×2 (08:36→17:30)
[2018-09-12] MEDS: ASPIRIN 81MG TABLET PO SCH (08:36)
[2018-09-12] MEDS: MINOXIDIL 2.5MG TABLET PO SCH (08:43)
[2018-09-12] MEDS: METOPROLOL TARTRATE 25MG TABLET PO SCH (08:44)
[2018-09-12] MEDS: HYDRALAZINE HCL 25MG TABLET PO SCH ×2 (08:44→14:09)
[2018-09-12] MEDS: ENOXAPARIN 30MG/0.3ML SYR SUBCUT SCH (08:45)
[2018-09-12] MEDS: MORPHINE SULFATE 2 MG/ML CPJ (NOT FOR IM USE) IV PRN ×2 (09:11→19:52)
[2018-09-12] MEDS: IPRATROPIUM/ALBUTEROL 0.5-3(2.5)MG/3ML NEB INH PRN ×3 (11:14→20:21)
[2018-09-12 12:00] VITALS: BP 112/57
[2018-09-12 16:00] VITALS: BP 124/67
[2018-09-12 20:00] VITALS: BP 149/77
[2018-09-12] MEDS: ATORVASTATIN CALCIUM 20MG TABLET PO SCH (20:13)
[2018-09-13] VITALS: BP 106/52
[2018-09-13] MEDS: METOPROLOL TARTRATE 25MG TABLET PO SCH ×3 (01:00→21:34)
[2018-09-13] MEDS: HYDRALAZINE HCL 25MG TABLET PO SCH ×4 (01:00→22:00)
[2018-09-13] MEDS: MINOXIDIL 2.5MG TABLET PO SCH ×3 (01:00→21:33)
[2018-09-13] MEDS: HYDROCODONE/ACETAMINOPHEN 10/325MG TABLET PO PRN (02:02)
[2018-09-13 04:00] VITALS: BP 117/56
[2018-09-13 08:00] VITALS: BP 148/83
[2018-09-13] MEDS: ASPIRIN 81MG TABLET PO SCH (09:29)
[2018-09-13] MEDS: LEVETIRACETAM 500MG TABLET PO SCH ×2 (09:30→17:09)
[2018-09-13] MEDS: ACETAMINOPHEN 325MG TABLET PO PRN ×2 (09:37→21:35)
[2018-09-13] MEDS: ENOXAPARIN 30MG/0.3ML SYR SUBCUT SCH (09:45)
[2018-09-13 12:00] VITALS: BP 130/81
[2018-09-13] MEDS: LEVOFLOXACIN 250MG PREMIX 50 ML IV SCH (14:44)
[2018-09-13] MEDS ORDERED: LACTULOSE 20G/30ML UDC PO NR (15:00)
[2018-09-13] MEDS ORDERED: DOCUSATE SODIUM 250MG CAPSULE PO NR (15:00)
[2018-09-13] MEDS: DOCUSATE SODIUM 100MG CAPSULE PO PRN ×2 (17:12→21:41)
[2018-09-13 20:00] VITALS: BP 129/70
[2018-09-13] MEDS: GUAIFENESIN 600MG ER TABLET PO SCH (21:32)
[2018-09-13] MEDS: ATORVASTATIN CALCIUM 20MG TABLET PO SCH (21:32)
[2018-09-13] MEDS: IPRATROPIUM/ALBUTEROL 0.5-3(2.5)MG/3ML NEB HHN SCH (22:50)
[2018-09-13] MEDS: BUDESONIDE 0.5MG/2ML NEB HHN SCH (22:51)
[2018-09-13] MEDS ORDERED: LEVOFLOXACIN 250MG PREMIX 50 ML IV SCH (23:00)
[2018-09-14] VITALS: BP 125/71
[2018-09-14] MEDS: MORPHINE SULFATE 2 MG/ML CPJ (NOT FOR IM USE) IV PRN (00:20)
[2018-09-14] MEDS: IPRATROPIUM/ALBUTEROL 0.5-3(2.5)MG/3ML NEB HHN SCH ×4 (03:34→20:07)
[2018-09-14 04:00] VITALS: BP 114/72
[2018-09-14] MEDS: LORAZEPAM 2MG/ML CPJ IV PRN (05:19)
[2018-09-14] MEDS: HYDRALAZINE HCL 25MG TABLET PO SCH ×3 (05:19→21:17)
[2018-09-14 06:50] LABS: BASOPHILS % 1.2 % (0.0-2.0); EOSINOPHILS % 2.7 % (0.0-5.0); HEMATOCRIT. 23.2 % (42.0-52.0); HEMOGLOBIN. 7.7 g/dL (14.0-18.0); LYMPHOCYTES % 18.2 % (20.0-50.0); MEAN CORPUSCULAR HEMOGLOBIN 29.4 pg (28.0-32.0); MEAN CORPUSCULAR VOLUME 88.6 fL (80.0-94.0); MEAN PLATELET VOLUME 8.7 fl (7.4-10.4); MONOCYTES % 8.4 % (2.0-8.0); NEUTROPHILS % 69.5 % (40.0-76.0); PLATELET 92 x1000/uL (130-400); RED BLOOD CELL COUNT 2.62 mill/uL (4.7-6.1); RED CELL DISTRIBUTION WIDTH 16.3 % (11.6-14.6)
[2018-09-14 08:00] VITALS: BP 137/80
[2018-09-14] MEDS: ENOXAPARIN 30MG/0.3ML SYR SUBCUT SCH (09:00)
[2018-09-14] MEDS: MINOXIDIL 2.5MG TABLET PO SCH ×2 (09:08→21:16)
[2018-09-14] MEDS: LEVETIRACETAM 500MG TABLET PO SCH ×2 (09:08→17:26)
[2018-09-14] MEDS: GUAIFENESIN 600MG ER TABLET PO SCH ×2 (09:08→21:16)
[2018-09-14] MEDS: METOPROLOL TARTRATE 25MG TABLET PO SCH ×2 (09:09→21:16)
[2018-09-14] MEDS: ASPIRIN 81MG TABLET PO SCH (09:10)
[2018-09-14] MEDS: DOCUSATE SODIUM 100MG CAPSULE PO PRN (09:10)
[2018-09-14] MEDS: BUDESONIDE 0.5MG/2ML NEB HHN SCH ×2 (09:45→20:08)
[2018-09-14 12:00] VITALS: BP 136/76
[2018-09-14] MEDS ORDERED: BISACODYL 10MG SUPP PR SCH (12:45)
[2018-09-14] MEDS ORDERED: SORBITOL 70% SOLN 30ML PO NR ×2 (17:00→21:00)
[2018-09-14 20:00] VITALS: BP 131/67
[2018-09-14] MEDS: PANTOPRAZOLE SODIUM 40 MG/VIAL IV SCH (21:15)
[2018-09-14] MEDS: ATORVASTATIN CALCIUM 20MG TABLET PO SCH (21:15)
[2018-09-15] VITALS (7 sets, daily range): BP systolic 134–162; BP diastolic 65–96
[2018-09-15 00:16] LABS: HEMATOCRIT 24.5 % (42.0-52.0); HEMOGLOBIN 8.1 g/dL (14.0-18.0)
[2018-09-15] MEDS: IPRATROPIUM/ALBUTEROL 0.5-3(2.5)MG/3ML NEB HHN SCH ×4 (02:00→20:48)
[2018-09-15] MEDS ORDERED: SORBITOL 70% SOLN 30ML PO NR (06:00)
[2018-09-15] MEDS: HYDRALAZINE HCL 25MG TABLET PO SCH ×3 (06:05→21:28)
[2018-09-15] MEDS: MORPHINE SULFATE 2 MG/ML CPJ (NOT FOR IM USE) IV PRN (06:22)
[2018-09-15 07:04] LABS: INR 1.1; PARTIAL THROMBOPLASTIN TIME 34.5 sec (23.4-31.0); PROTHROMBIN TIME 11.4 sec (9.6-11.0)
[2018-09-15 07:05] LABS: BASOPHILS % 0.8 % (0.0-2.0); EOSINOPHILS % 6.5 % (0.0-5.0); HEMATOCRIT. 26.9 % (42.0-52.0); LYMPHOCYTES % 18.2 % (20.0-50.0); MEAN CORPUSCULAR HEMOGLOBIN 29.5 pg (28.0-32.0); MEAN CORPUSCULAR VOLUME 88.4 fL (80.0-94.0); MEAN PLATELET VOLUME 8.7 fl (7.4-10.4); MONOCYTES % 7.1 % (2.0-8.0); NEUTROPHILS % 67.4 % (40.0-76.0); PLATELET 115 x1000/uL (130-400); RED BLOOD CELL COUNT 3.04 mill/uL (4.7-6.1); RED CELL DISTRIBUTION WIDTH 16.1 % (11.6-14.6)
[2018-09-15] MEDS: GUAIFENESIN 600MG ER TABLET PO SCH ×2 (08:29→21:27)
[2018-09-15] MEDS: LEVETIRACETAM 500MG TABLET PO SCH ×2 (08:31→21:27)
[2018-09-15] MEDS: PANTOPRAZOLE SODIUM 40 MG/VIAL IV SCH ×2 (08:33→21:27)
[2018-09-15] MEDS: METOPROLOL TARTRATE 25MG TABLET PO SCH ×2 (08:33→21:28)
[2018-09-15] MEDS: MINOXIDIL 2.5MG TABLET PO SCH ×2 (08:33→21:28)
[2018-09-15] MEDS: HYDROCODONE/ACETAMINOPHEN 10/325MG TABLET PO PRN ×2 (08:52→23:06)
[2018-09-15] MEDS: BUDESONIDE 0.5MG/2ML NEB HHN SCH ×2 (10:15→20:47)
[2018-09-15] MEDS: NA PHOS,M-B/NA PHOS,DI-BA ENEMA 118ML PR PRN ×2 (10:41→11:48)
[2018-09-15] MEDS ORDERED: BACTERIOSTATIC SODIUM CHLORIDE 0.9% 30ML VIAL IJ ONE (10:57)
[2018-09-15] MEDS: LEVOFLOXACIN 250MG PREMIX 50 ML IV SCH (12:26)
[2018-09-15 15:22] LABS: HEMATOCRIT 25.3 % (42.0-52.0); HEMOGLOBIN 8.3 g/dL (14.0-18.0)
[2018-09-15] MEDS ORDERED: SIMETHICONE 40 MG/0.6 ML 30ML ONE (16:22)
[2018-09-15] MEDS ORDERED: FENTANYL CITRATE/PF 50MCG/ML 2ML VIAL ONE (16:23)
[2018-09-15] MEDS ORDERED: MIDAZOLAM HCL 5 MG/5 ML VIAL ONE ×2 (16:23→17:55)
[2018-09-15] MEDS ORDERED: MIDAZOLAM HCL 5 MG/5 ML VIAL IV PRN (16:45)
[2018-09-15] MEDS ORDERED: FENTANYL CITRATE/PF 50MCG/ML 2ML VIAL IV PRN (16:46)
[2018-09-15] MEDS: ATORVASTATIN CALCIUM 20MG TABLET PO SCH (21:27)
[2018-09-16] VITALS (7 sets, daily range): BP systolic 115–174; BP diastolic 58–96
[2018-09-16] MEDS: LORAZEPAM 2MG/ML CPJ IV PRN (01:28)
[2018-09-16] MEDS: IPRATROPIUM/ALBUTEROL 0.5-3(2.5)MG/3ML NEB HHN SCH ×4 (01:58→20:51)
[2018-09-16] MEDS: HYDRALAZINE HCL 25MG TABLET PO SCH ×3 (05:34→22:41)
[2018-09-16] MEDS: BUDESONIDE 0.5MG/2ML NEB HHN SCH ×2 (08:23→20:52)
[2018-09-16] MEDS: CLONIDINE 0.1MG TABLET PO PRN (09:05)
[2018-09-16] MEDS: GUAIFENESIN 600MG ER TABLET PO SCH ×2 (09:06→21:46)
[2018-09-16] MEDS: ACETAMINOPHEN 325MG TABLET PO PRN (09:06)
[2018-09-16] MEDS: MINOXIDIL 2.5MG TABLET PO SCH ×2 (09:06→21:47)
[2018-09-16] MEDS: LEVETIRACETAM 500MG TABLET PO SCH ×2 (09:06→18:17)
[2018-09-16] MEDS: DOCUSATE SODIUM 100MG CAPSULE PO PRN (09:06)
[2018-09-16] MEDS: PANTOPRAZOLE SODIUM 40 MG/VIAL IV SCH ×2 (09:07→21:47)
[2018-09-16] MEDS: METOPROLOL TARTRATE 25MG TABLET PO SCH ×2 (09:07→21:46)
[2018-09-16] MEDS: MORPHINE SULFATE 2 MG/ML CPJ (NOT FOR IM USE) IV PRN ×2 (09:21→19:08)
[2018-09-16 10:02] LABS: HEMATOCRIT 27.3 % (42.0-52.0); HEMOGLOBIN 8.9 g/dL (14.0-18.0); MEAN CORPUSCULAR HEMOGLOBIN 28.9 pg (28.0-32.0); PLATELET 127 x1000/uL (130-400); RED BLOOD CELL COUNT 3.07 mill/uL (4.7-6.1); RED CELL DISTRIBUTION WIDTH 16.2 % (11.6-14.6)
[2018-09-16] MEDS: NITROGLYCERIN OINT 1GM/INCH UDPKT TD SCH ×2 (14:43→22:41)
[2018-09-16 16:48] LABS: CREATINE KINASE MB FRACTION 7.2 ng/mL (0.5-3.6)
[2018-09-16] MEDS: ATORVASTATIN CALCIUM 20MG TABLET PO SCH (21:47)
[2018-09-17] VITALS: BP 132/67
[2018-09-17 00:14] LABS: CREATINE KINASE MB FRACTION 6.4 ng/mL (0.5-3.6)
[2018-09-17] MEDS: DIPHENHYDRAMINE 50MG/ML VIAL IV PRN (00:42)
[2018-09-17 04:00] VITALS: BP 157/89
[2018-09-17] MEDS: NITROGLYCERIN OINT 1GM/INCH UDPKT TD SCH ×3 (05:52→21:05)
[2018-09-17] MEDS: HYDRALAZINE HCL 25MG TABLET PO SCH ×3 (05:52→21:04)
[2018-09-17 07:56] LABS: CREATINE KINASE MB FRACTION 6.7 ng/mL (0.5-3.6)
[2018-09-17 08:00] VITALS: BP 142/71
[2018-09-17 08:01] LABS: BASOPHILS % 1.2 % (0.0-2.0); EOSINOPHILS % 8.6 % (0.0-5.0); LYMPHOCYTES % 22.5 % (20.0-50.0); MEAN CORPUSCULAR VOLUME 87.9 fL (80.0-94.0); MEAN PLATELET VOLUME 8.5 fl (7.4-10.4); MONOCYTES % 8.6 % (2.0-8.0); NEUTROPHILS % 59.1 % (40.0-76.0); PLATELET 114 x1000/uL (130-400); RED BLOOD CELL COUNT 2.55 mill/uL (4.7-6.1); RED CELL DISTRIBUTION WIDTH 15.6 % (11.6-14.6)
[2018-09-17] MEDS: IPRATROPIUM/ALBUTEROL 0.5-3(2.5)MG/3ML NEB HHN SCH ×3 (08:37→22:30)
[2018-09-17 08:49] LABS: HEMATOCRIT. 22.4 % (42.0-52.0); HEMOGLOBIN. 7.4 g/dL (14.0-18.0)
[2018-09-17] MEDS: DOCUSATE SODIUM 100MG CAPSULE PO PRN (09:29)
[2018-09-17] MEDS: PANTOPRAZOLE SODIUM 40 MG/VIAL IV SCH ×2 (09:29→21:03)
[2018-09-17] MEDS: LEVETIRACETAM 500MG TABLET PO SCH ×2 (09:29→18:06)
[2018-09-17] MEDS: MINOXIDIL 2.5MG TABLET PO SCH ×2 (09:30→21:04)
[2018-09-17] MEDS: METOPROLOL TARTRATE 25MG TABLET PO SCH ×2 (09:30→21:04)
[2018-09-17] MEDS: GUAIFENESIN 600MG ER TABLET PO SCH ×2 (09:30→21:04)
[2018-09-17 12:00] VITALS: BP 150/68
[2018-09-17] MEDS: LEVOFLOXACIN 250MG PREMIX 50 ML IV SCH (13:52)
[2018-09-17] MEDS: CLONIDINE 0.1MG TABLET PO PRN (14:01)
[2018-09-17 16:00] VITALS: BP 170/68
[2018-09-17 20:00] VITALS: BP 130/70
[2018-09-17] MEDS: ATORVASTATIN CALCIUM 20MG TABLET PO SCH (21:03)
[2018-09-18] VITALS (9 sets, daily range): BP systolic 112–135; BP diastolic 53–78
[2018-09-18] MEDS: ACETAMINOPHEN 325MG TABLET PO PRN (01:04)
[2018-09-18] MEDS: CLONIDINE 0.1MG TABLET PO PRN (01:04)
[2018-09-18] MEDS: IPRATROPIUM/ALBUTEROL 0.5-3(2.5)MG/3ML NEB HHN SCH ×4 (01:46→20:07)
[2018-09-18] MEDS: DIPHENHYDRAMINE 50MG/ML VIAL IV PRN (02:15)
[2018-09-18] MEDS: ZOLPIDEM TARTRATE 5MG TABLET PO PRN (04:25)
[2018-09-18] MEDS: HYDRALAZINE HCL 25MG TABLET PO SCH ×3 (05:59→22:24)
[2018-09-18] MEDS: NITROGLYCERIN OINT 1GM/INCH UDPKT TD SCH ×3 (06:00→22:25)
[2018-09-18 07:06] LABS: BASOPHILS % 1.1 % (0.0-2.0); EOSINOPHILS % 4.5 % (0.0-5.0); LYMPHOCYTES % 13.5 % (20.0-50.0); MEAN CORPUSCULAR HEMOGLOBIN 28.7 pg (28.0-32.0); MEAN CORPUSCULAR VOLUME 87.6 fL (80.0-94.0); MEAN PLATELET VOLUME 8.2 fl (7.4-10.4); MONOCYTES % 10.5 % (2.0-8.0); NEUTROPHILS % 70.4 % (40.0-76.0); PLATELET 129 x1000/uL (130-400); RED BLOOD CELL COUNT 2.39 mill/uL (4.7-6.1); RED CELL DISTRIBUTION WIDTH 15.8 % (11.6-14.6)
[2018-09-18 07:52] LABS: HEMATOCRIT. 20.9 % (42.0-52.0); HEMOGLOBIN. 6.9 g/dL (14.0-18.0)
[2018-09-18] MEDS: PANTOPRAZOLE SODIUM 40 MG/VIAL IV SCH ×2 (08:47→20:34)
[2018-09-18] MEDS: LEVETIRACETAM 500MG TABLET PO SCH ×2 (08:47→17:36)
[2018-09-18] MEDS: MINOXIDIL 2.5MG TABLET PO SCH ×2 (08:48→20:35)
[2018-09-18] MEDS: GUAIFENESIN 600MG ER TABLET PO SCH ×2 (08:48→20:34)
[2018-09-18] MEDS: METOPROLOL TARTRATE 25MG TABLET PO SCH ×2 (08:48→20:35)
[2018-09-18] MEDS: MORPHINE SULFATE 2 MG/ML CPJ (NOT FOR IM USE) IV PRN (16:13)
[2018-09-18] MEDS: ATORVASTATIN CALCIUM 20MG TABLET PO SCH (20:34)
[2018-09-19] VITALS: BP 122/67
[2018-09-19] MEDS: ZOLPIDEM TARTRATE 5MG TABLET PO PRN (01:18)
[2018-09-19] MEDS: IPRATROPIUM/ALBUTEROL 0.5-3(2.5)MG/3ML NEB HHN SCH ×2 (01:47→08:17)
[2018-09-19 04:00] VITALS: BP 131/74
[2018-09-19] MEDS: HYDRALAZINE HCL 25MG TABLET PO SCH (05:29)
[2018-09-19] MEDS: NITROGLYCERIN OINT 1GM/INCH UDPKT TD SCH (05:29)
[2018-09-19 08:00] VITALS: BP 132/66
[2018-09-19] MEDS: LEVETIRACETAM 500MG TABLET PO SCH (08:27)
[2018-09-19] MEDS: GUAIFENESIN 600MG ER TABLET PO SCH (08:27)
[2018-09-19] MEDS: PANTOPRAZOLE SODIUM 40 MG/VIAL IV SCH (08:27)
[2018-09-19] MEDS: MINOXIDIL 2.5MG TABLET PO SCH (08:28)
[2018-09-19] MEDS: METOPROLOL TARTRATE 25MG TABLET PO SCH (08:28)
[2018-09-19 08:47] LABS: HEMATOCRIT. 25.3 % (42.0-52.0); HEMOGLOBIN. 8.3 g/dL (14.0-18.0); LYMPHOCYTES % 17.9 % (20.0-50.0); MEAN CORPUSCULAR HEMOGLOBIN 28.6 pg (28.0-32.0); MEAN CORPUSCULAR VOLUME 86.9 fL (80.0-94.0); MEAN PLATELET VOLUME 8.3 fl (7.4-10.4); MONOCYTES % 9.3 % (2.0-8.0); NEUTROPHILS % 64.8 % (40.0-76.0); PLATELET 156 x1000/uL (130-400); RED BLOOD CELL COUNT 2.91 mill/uL (4.7-6.1); RED CELL DISTRIBUTION WIDTH 16.3 % (11.6-14.6)
[2018-09-19] MEDS: MORPHINE SULFATE 2 MG/ML CPJ (NOT FOR IM USE) IV PRN (10:41)
[2018-09-19 11:24] VITALS: BP 158/88
[2018-09-19 12:00] VITALS: BP 158/88
== END 2018-09-19 13:59 | disposition home or self-care (01) | DRG 254 ==
LOC: ER 15:00 → 7WST 18:30 → ENRESERV 19:59
PROVIDERS: ADMIT Internal Medicine; ATTEND Internal Medicine
PROC: 5A1D70Z Performance of Urinary Filtration, Intermittent, Less than 6 Hours Per Day (ICD-10-PCS; 2018-09-12)
PROC: 0DB78ZX Excision of Stomach, Pylorus, Via Natural or Artificial Opening Endoscopic, Diagnostic (ICD-10-PCS; principal; 2018-09-15)
PROC: 0DBP8ZZ Excision of Rectum, Via Natural or Artificial Opening Endoscopic (ICD-10-PCS; 2018-09-15)
PROC: 0DBN8ZX Excision of Sigmoid Colon, Via Natural or Artificial Opening Endoscopic, Diagnostic (ICD-10-PCS; 2018-09-15)
PROC: 5A1D70Z Performance of Urinary Filtration, Intermittent, Less than 6 Hours Per Day (ICD-10-PCS; 2018-09-16)
PROC: 30233N1 Transfusion of Nonautologous Red Blood Cells into Peripheral Vein, Percutaneous Approach (ICD-10-PCS; 2018-09-18)
PROC: 5A1D70Z Performance of Urinary Filtration, Intermittent, Less than 6 Hours Per Day (ICD-10-PCS; 2018-09-18)
PROC: 5A1D70Z Performance of Urinary Filtration, Intermittent, Less than 6 Hours Per Day (ICD-10-PCS; 2018-09-19)
DX: D12.5 Benign neoplasm of sigmoid colon (principal); J96.01 Acute respiratory failure with hypoxia; I13.2 Hypertensive heart and chronic kidney disease with heart failure and with stage 5 chronic kidney disease, or end stage renal disease; N18.6 End stage renal disease; D69.6 Thrombocytopenia, unspecified; E46 Unspecified protein-calorie malnutrition; E87.5 Hyperkalemia; J44.9 Chronic obstructive pulmonary disease, unspecified; I50.9 Heart failure, unspecified; I25.10 Atherosclerotic heart disease of native coronary artery without angina pectoris; G40.909 Epilepsy, unspecified, not intractable, without status epilepticus; F17.200 Nicotine dependence, unspecified, uncomplicated; D63.1 Anemia in chronic kidney disease; E78.00 Pure hypercholesterolemia, unspecified; F12.90 Cannabis use, unspecified, uncomplicated; K21.9 Gastro-esophageal reflux disease without esophagitis; K29.70 Gastritis, unspecified, without bleeding; K29.80 Duodenitis without bleeding; K64.8 Other hemorrhoids; K59.00 Constipation, unspecified; K62.1 Rectal polyp; K64.9 Unspecified hemorrhoids; Z79.82 Long term (current) use of aspirin; Z79.899 Other long term (current) drug therapy; Z82.49 Family history of ischemic heart disease and other diseases of the circulatory system; Z86.73 Personal history of transient ischemic attack (TIA), and cerebral infarction without residual deficits; Z95.5 Presence of coronary angioplasty implant and graft; Z99.2 Dependence on renal dialysis; Z87.01 Personal history of pneumonia (recurrent); Z68.21 Body mass index [BMI] 21.0-21.9, adult; Z88.1 Allergy status to other antibiotic agents; Z88.0 Allergy status to penicillin; Z88.8 Allergy status to other drugs, medicaments and biological substances; Y92.89 Other specified places as the place of occurrence of the external cause
CPT/HCPCS: 36415; 71045; 74018; 80048; 80061; 82270; 82550; 82553; 82962; 83735; 83880; 84439; 84443; 84484; 85014; 85018; 85027; 86850; 86900; 86920; 87804; 88305; 88312; 88313; 93005; 93306; 94640; 96374; 99152; 99153; 99285; C9113; J1200; J1650; J1956; J2060; J2250; J2270; J2405; J3010; J3490; J7040; J7050; J7620; J7626; P9021; G0500

== ENCOUNTER 2018-10-11 04:51 | Emergency (ER) | payer MEDICAID ==
[~2018-10-11] VITALS: Ht 162.6 cm; Wt 60.0 kg
[2018-10-11] MEDS ORDERED: NITROGLYCERIN 0.4MG TABLET SL SL PRN (05:00)
[2018-10-11] MEDS ORDERED: FUROSEMIDE 100MG/10ML VIAL IVP ONE (05:00)
[2018-10-11 05:02] VITALS: BP 133/68
[2018-10-11] MEDS ORDERED: ASPIRIN 325MG EC TABLET PO ONE (05:45)
[2018-10-11 05:56] LABS: BASOPHILS % 0.7 % (0.0-2.0); EOSINOPHILS % 3.3 % (0.0-5.0); HEMATOCRIT. 24.3 % (42.0-52.0); LYMPHOCYTES % 10.8 % (20.0-50.0); MEAN CORPUSCULAR HEMOGLOBIN 30.7 pg (28.0-32.0); MEAN CORPUSCULAR VOLUME 92.6 fL (80.0-94.0); MEAN PLATELET VOLUME 8.2 fl (7.4-10.4); MONOCYTES % 6.1 % (2.0-8.0); NEUTROPHILS % 79.1 % (40.0-76.0); PLATELET 193 x1000/uL (130-400); RED BLOOD CELL COUNT 2.62 mill/uL (4.7-6.1); RED CELL DISTRIBUTION WIDTH 16.2 % (11.6-14.6)
[2018-10-11] MEDS ORDERED: CALCIUM GLUCONATE 100MG/ML 10ML VIAL IV ONE (06:00)
[2018-10-11 06:02] LABS: CHLORIDE 98 mEq/L (98-107)
== END 2018-10-11 06:13 | disposition short-term general hospital (02) ==
LOC: ER 04:51
DX: I21.3 ST elevation (STEMI) myocardial infarction of unspecified site (principal); I13.2 Hypertensive heart and chronic kidney disease with heart failure and with stage 5 chronic kidney disease, or end stage renal disease; E11.22 Type 2 diabetes mellitus with diabetic chronic kidney disease; N18.6 End stage renal disease; I50.9 Heart failure, unspecified; Z99.2 Dependence on renal dialysis; Z86.73 Personal history of transient ischemic attack (TIA), and cerebral infarction without residual deficits
CPT/HCPCS: 36415; 71045; 80053; 83880; 84484; 85025; 93005; 94660; 99291; J0610; J1940

== ENCOUNTER 2019-04-25 13:40 | Inpatient (IN) | payer MEDICAID ==
[~2019-04-25] VITALS: Ht 172.7 cm; Wt 63.5 kg
[~2019-04-25 13:40] MED LIST changes: +AMLO-79 PO; -ASPI-1393 PO; +ASPI-1497 PO; +CLOP75TA4 PO; -KEPPSOL MT; +LEVE750T4 MT; +REN800 MT
[2019-04-25] MEDS ORDERED: MORPHINE SULFATE 4 MG/ML CPJ (NOT FOR IM USE) IV ONE (14:15)
[2019-04-25] MEDS ORDERED: NITROGLYCERIN 0.4MG TABLET SL SL ONE (14:15)
[2019-04-25] MEDS ORDERED: ONDANSETRON HCL 4MG/2ML INJ IV ONE (14:15)
[2019-04-25] MEDS ORDERED: METOPROLOL TARTRATE 5MG/5ML VIAL IV ONE (14:15)
[2019-04-25] MEDS ORDERED: CLOPIDOGREL 75MG TABLET PO ONE (15:15)
[2019-04-25] MEDS ORDERED: NITROGLYCERIN OINT 1GM/INCH UDPKT TD ONE (15:15)
[2019-04-25 15:19] LABS: BASOPHILS % 1.7 % (0.0-2.0); EOSINOPHILS % 8.5 % (0.0-5.0); HEMATOCRIT. 29.2 % (42.0-52.0); HEMOGLOBIN. 9.7 g/dL (14.0-18.0); LYMPHOCYTES % 12.4 % (20.0-50.0); MEAN CORPUSCULAR HEMOGLOBIN 31.3 pg (28.0-32.0); MEAN CORPUSCULAR VOLUME 93.8 fL (80.0-94.0); MEAN PLATELET VOLUME 8.5 fl (7.4-10.4); MONOCYTES % 5.5 % (2.0-8.0); NEUTROPHILS % 71.9 % (40.0-76.0); PLATELET 149 x1000/uL (130-400); RED BLOOD CELL COUNT 3.11 mill/uL (4.7-6.1); RED CELL DISTRIBUTION WIDTH 18.4 % (11.6-14.6)
[2019-04-25 15:23] LABS: CHLORIDE 97 mEq/L (98-107)
[2019-04-25 15:29] LABS: PHOSPHORUS 2.5 mg/dL (2.5-4.9)
[2019-04-25] MEDS: NITROGLYCERIN OINT 1GM/INCH UDPKT TD SCH (18:00)
[2019-04-25] MEDS: ASPIRIN 81MG TABLET PO SCH (18:25)
[2019-04-25] MEDS: CARVEDILOL 6.25 MG TABLET PO SCH (18:26)
[2019-04-26] VITALS (11 sets, daily range): BP systolic 112–151; BP diastolic 54–83
[2019-04-26] MEDS: ATORVASTATIN CALCIUM 20MG TABLET PO SCH ×2 (00:42→21:50)
[2019-04-26] MEDS: NITROGLYCERIN OINT 1GM/INCH UDPKT TD SCH ×4 (00:44→17:57)
[2019-04-26 07:03] LABS: BASOPHILS % 1.5 % (0.0-2.0); EOSINOPHILS % 10.2 % (0.0-5.0); HEMATOCRIT. 25.2 % (42.0-52.0); HEMOGLOBIN. 8.4 g/dL (14.0-18.0); LYMPHOCYTES % 20.1 % (20.0-50.0); MEAN CORPUSCULAR HEMOGLOBIN 31.7 pg (28.0-32.0); MEAN CORPUSCULAR VOLUME 94.8 fL (80.0-94.0); MEAN PLATELET VOLUME 8.7 fl (7.4-10.4); MONOCYTES % 8.6 % (2.0-8.0); NEUTROPHILS % 59.6 % (40.0-76.0); PLATELET 109 x1000/uL (130-400); RED BLOOD CELL COUNT 2.66 mill/uL (4.7-6.1); RED CELL DISTRIBUTION WIDTH 18.7 % (11.6-14.6)
[2019-04-26 07:29] LABS: VITAMIN B12 SERUM 898 pg/mL (211-911)
[2019-04-26] MEDS ORDERED: CLOPIDOGREL 75MG TABLET PO SCH (09:00)
[2019-04-26] MEDS: CARVEDILOL 6.25 MG TABLET PO SCH ×2 (09:27→17:56)
[2019-04-26] MEDS: ASPIRIN 81MG TABLET PO SCH ×2 (09:27→17:56)
[2019-04-26] MEDS: DIPHENHYDRAMINE 50MG/ML VIAL IV PRN (11:30)
[2019-04-26] MEDS: FERROUS SULFATE 325MG TABLET PO SCH ×2 (12:25→17:56)
[2019-04-26] MEDS: SACUBITRIL/VALSARTAN 24/26 TAB PO SCH ×2 (12:26→21:50)
[2019-04-26 12:47] LABS: TOTAL IRON BINDING CAPACITY 251 ug/dL (250-450)
[2019-04-26 16:10] LABS: BASOPHILS % 1.8 % (0.0-2.0); EOSINOPHILS % 10.4 % (0.0-5.0); HEMATOCRIT. 26.8 % (42.0-52.0); MEAN CORPUSCULAR HEMOGLOBIN 31.6 pg (28.0-32.0); MEAN CORPUSCULAR VOLUME 94.6 fL (80.0-94.0); MEAN PLATELET VOLUME 8.6 fl (7.4-10.4); MONOCYTES % 10.1 % (2.0-8.0); NEUTROPHILS % 62.7 % (40.0-76.0); PLATELET 121 x1000/uL (130-400); RED BLOOD CELL COUNT 2.83 mill/uL (4.7-6.1); RED CELL DISTRIBUTION WIDTH 19.1 % (11.6-14.6)
[2019-04-26] MEDS ORDERED: MAGNESIUM/ALUMINUM HYDROXIDE/SIMETHICONE 30ML UDC PO PRN (16:15)
[2019-04-26] MEDS ORDERED: SORBITOL 70% SOLN 30ML PO SCH (16:15)
[2019-04-26] MEDS ORDERED: SEVELAMER CARBONATE 800 MG TABLET PO SCH (17:00)
[2019-04-26] MEDS ORDERED: CALCIUM ACETATE 667 MG TABLET PO SCH (17:20)
[2019-04-26] MEDS: HYDRALAZINE HCL 100MG TABLET PO SCH (17:55)
[2019-04-26] MEDS: GABAPENTIN 100MG CAPSULE PO SCH (17:56)
[2019-04-26] MEDS: LEVETIRACETAM 500MG/5ML CUP PO SCH (21:50)
[2019-04-26] MEDS: HEMORRHOIDAL SUPP PR SCH (21:52)
[2019-04-26] MEDS: CALCIUM ACETATE 667 MG TABLET PO SCH (21:57)
[2019-04-26] MEDS: HYDROCODONE/ACETAMINOPHEN 10/325MG TABLET PO PRN (22:33)
[2019-04-26] MEDS: CLONIDINE 0.3MG TABLET PO SCH (22:33)
[2019-04-27] VITALS (19 sets, daily range): BP systolic 113–148; BP diastolic 53–86
[2019-04-27] MEDS: NITROGLYCERIN OINT 1GM/INCH UDPKT TD SCH ×4 (01:40→18:21)
[2019-04-27] MEDS: HYDRALAZINE HCL 100MG TABLET PO SCH ×3 (01:40→18:22)
[2019-04-27] MEDS: DIPHENHYDRAMINE 50MG/ML VIAL IV PRN (01:55)
[2019-04-27] MEDS: CLONIDINE 0.3MG TABLET PO SCH ×3 (06:38→22:21)
[2019-04-27 08:27] LABS: BASOPHILS % 1.4 % (0.0-2.0); EOSINOPHILS % 8.7 % (0.0-5.0); HEMATOCRIT. 28.3 % (42.0-52.0); HEMOGLOBIN. 9.3 g/dL (14.0-18.0); LYMPHOCYTES % 17.2 % (20.0-50.0); MEAN CORPUSCULAR HEMOGLOBIN 31.2 pg (28.0-32.0); MEAN CORPUSCULAR VOLUME 94.9 fL (80.0-94.0); MEAN PLATELET VOLUME 8.5 fl (7.4-10.4); MONOCYTES % 10.5 % (2.0-8.0); NEUTROPHILS % 62.2 % (40.0-76.0); PLATELET 113 x1000/uL (130-400); RED BLOOD CELL COUNT 2.99 mill/uL (4.7-6.1); RED CELL DISTRIBUTION WIDTH 19.1 % (11.6-14.6)
[2019-04-27] MEDS: FERROUS SULFATE 325MG TABLET PO SCH ×3 (09:07→18:21)
[2019-04-27] MEDS: CALCIUM ACETATE 667 MG TABLET PO SCH ×3 (09:07→18:20)
[2019-04-27] MEDS: ASPIRIN 81MG TABLET PO SCH ×2 (09:08→18:22)
[2019-04-27] MEDS: HEMORRHOIDAL SUPP PR SCH ×2 (09:08→21:00)
[2019-04-27] MEDS: SACUBITRIL/VALSARTAN 24/26 TAB PO SCH ×2 (09:08→21:59)
[2019-04-27] MEDS: CARVEDILOL 6.25 MG TABLET PO SCH ×3 (09:08→22:21)
[2019-04-27] MEDS: MINOXIDIL 2.5MG TABLET PO SCH (09:09)
[2019-04-27] MEDS: GABAPENTIN 100MG CAPSULE PO SCH ×3 (09:10→18:21)
[2019-04-27] MEDS: LEVETIRACETAM 500MG/5ML CUP PO SCH ×2 (11:52→22:00)
[2019-04-27] MEDS: HYDROCODONE/ACETAMINOPHEN 10/325MG TABLET PO PRN (12:05)
[2019-04-27] MEDS: CLOPIDOGREL 75MG TABLET PO SCH (14:50)
[2019-04-27] MEDS: ATORVASTATIN CALCIUM 20MG TABLET PO SCH (22:00)
[2019-04-28] VITALS (12 sets, daily range): BP systolic 98–141; BP diastolic 51–78
[2019-04-28] MEDS: HYDRALAZINE HCL 100MG TABLET PO SCH ×3 (02:00→18:17)
[2019-04-28] MEDS: DIPHENHYDRAMINE 50MG/ML VIAL IV PRN (04:42)
[2019-04-28] MEDS: CARVEDILOL 6.25 MG TABLET PO SCH ×3 (06:00→22:35)
[2019-04-28] MEDS: NITROGLYCERIN OINT 1GM/INCH UDPKT TD SCH ×4 (06:00→18:16)
[2019-04-28] MEDS: CLONIDINE 0.3MG TABLET PO SCH ×3 (06:00→22:34)
[2019-04-28] MEDS: FERROUS SULFATE 325MG TABLET PO SCH ×3 (06:16→16:47)
[2019-04-28] MEDS: CALCIUM ACETATE 667 MG TABLET PO SCH ×3 (06:16→16:50)
[2019-04-28] MEDS: CLOPIDOGREL 75MG TABLET PO SCH (08:52)
[2019-04-28] MEDS: LEVETIRACETAM 500MG/5ML CUP PO SCH ×2 (08:52→21:23)
[2019-04-28] MEDS: ASPIRIN 81MG TABLET PO SCH ×2 (08:52→16:47)
[2019-04-28] MEDS: GABAPENTIN 100MG CAPSULE PO SCH ×3 (08:52→16:47)
[2019-04-28] MEDS: HEMORRHOIDAL SUPP PR SCH ×2 (08:55→21:00)
[2019-04-28] MEDS: MINOXIDIL 2.5MG TABLET PO SCH (09:00)
[2019-04-28] MEDS: SACUBITRIL/VALSARTAN 24/26 TAB PO SCH ×2 (09:29→21:23)
[2019-04-28 09:48] LABS: BASOPHILS % 1.1 % (0.0-2.0); EOSINOPHILS % 9.8 % (0.0-5.0); HEMATOCRIT. 24.3 % (42.0-52.0); HEMOGLOBIN. 8.3 g/dL (14.0-18.0); MEAN CORPUSCULAR HEMOGLOBIN 32.5 pg (28.0-32.0); MEAN CORPUSCULAR VOLUME 94.7 fL (80.0-94.0); MEAN PLATELET VOLUME 8.8 fl (7.4-10.4); MONOCYTES % 8.7 % (2.0-8.0); NEUTROPHILS % 63.4 % (40.0-76.0); PLATELET 137 x1000/uL (130-400); RED BLOOD CELL COUNT 2.56 mill/uL (4.7-6.1); RED CELL DISTRIBUTION WIDTH 18.8 % (11.6-14.6)
[2019-04-28 15:42] LABS: BASOPHILS % 1.2 % (0.0-2.0); EOSINOPHILS % 8.7 % (0.0-5.0); HEMATOCRIT. 25.8 % (42.0-52.0); HEMOGLOBIN. 8.9 g/dL (14.0-18.0); LYMPHOCYTES % 15.2 % (20.0-50.0); MEAN CORPUSCULAR HEMOGLOBIN 32.6 pg (28.0-32.0); MEAN CORPUSCULAR VOLUME 95.1 fL (80.0-94.0); MEAN PLATELET VOLUME 8.5 fl (7.4-10.4); MONOCYTES % 10.2 % (2.0-8.0); NEUTROPHILS % 64.7 % (40.0-76.0); PLATELET 145 x1000/uL (130-400); RED BLOOD CELL COUNT 2.71 mill/uL (4.7-6.1); RED CELL DISTRIBUTION WIDTH 19.1 % (11.6-14.6)
[2019-04-28] MEDS: FOLIC ACID/VITAMIN B COMP W-C TABLET PO SCH (16:47)
[2019-04-28] MEDS ORDERED: IPRATROPIUM/ALBUTEROL 0.5-3(2.5)MG/3ML NEB HHN PRN (21:15)
[2019-04-28] MEDS: ATORVASTATIN CALCIUM 20MG TABLET PO SCH (21:24)
[2019-04-29] VITALS (9 sets, daily range): BP systolic 98–121; BP diastolic 46–67
[2019-04-29] MEDS: NITROGLYCERIN OINT 1GM/INCH UDPKT TD SCH ×3 (00:12→13:31)
[2019-04-29] MEDS: HYDRALAZINE HCL 100MG TABLET PO SCH ×2 (02:00→10:26)
[2019-04-29] MEDS: CLONIDINE 0.3MG TABLET PO SCH ×2 (05:53→14:00)
[2019-04-29] MEDS: CARVEDILOL 6.25 MG TABLET PO SCH ×2 (05:54→10:26)
[2019-04-29] MEDS: FERROUS SULFATE 325MG TABLET PO SCH ×2 (06:26→13:31)
[2019-04-29] MEDS: CALCIUM ACETATE 667 MG TABLET PO SCH ×2 (06:26→13:31)
[2019-04-29] MEDS: DIPHENHYDRAMINE 50MG/ML VIAL IV PRN (06:56)
[2019-04-29] MEDS: HEMORRHOIDAL SUPP PR SCH (09:00)
[2019-04-29] MEDS: FOLIC ACID/VITAMIN B COMP W-C TABLET PO SCH (10:25)
[2019-04-29] MEDS: GABAPENTIN 100MG CAPSULE PO SCH ×2 (10:25→13:31)
[2019-04-29] MEDS: MINOXIDIL 2.5MG TABLET PO SCH (10:25)
[2019-04-29] MEDS: ASPIRIN 81MG TABLET PO SCH (10:26)
[2019-04-29] MEDS: LEVETIRACETAM 500MG/5ML CUP PO SCH (10:27)
[2019-04-29] MEDS: SACUBITRIL/VALSARTAN 24/26 TAB PO SCH (13:31)
[2019-04-29 14:15] LABS: BASOPHILS % 1.3 % (0.0-2.0); EOSINOPHILS % 8.8 % (0.0-5.0); HEMATOCRIT. 27.4 % (42.0-52.0); HEMOGLOBIN. 9.3 g/dL (14.0-18.0); LYMPHOCYTES % 15.5 % (20.0-50.0); MEAN CORPUSCULAR HEMOGLOBIN 32.7 pg (28.0-32.0); MEAN CORPUSCULAR VOLUME 95.9 fL (80.0-94.0); MEAN PLATELET VOLUME 8.6 fl (7.4-10.4); MONOCYTES % 10.1 % (2.0-8.0); NEUTROPHILS % 64.3 % (40.0-76.0); PLATELET 172 x1000/uL (130-400); RED BLOOD CELL COUNT 2.86 mill/uL (4.7-6.1); RED CELL DISTRIBUTION WIDTH 19.4 % (11.6-14.6)
[2019-05-16] MEDS ORDERED: CLON0.3T PO (13:54)
[2019-05-16] MEDS ORDERED: ATOR20TA65 PO (13:54)
[2019-05-16] MEDS ORDERED: MINO2.5T2 PO (13:54)
[2019-05-16] MEDS ORDERED: LEVE750T4 PO (13:54)
[2019-05-16] MEDS ORDERED: ASPI-1158 PO (13:54)
[2019-05-17] MEDS ORDERED: GABA-529 MT (10:36)
[2019-05-17] MEDS ORDERED: HYDR-3280 MT (10:36)
[2019-05-20] MEDS ORDERED: LEVO500T2 MT (13:09)
[2019-05-20] MEDS ORDERED: AMLO5TAB88 PO (13:09)
[2019-05-20] MEDS ORDERED: HYDR-4135 PO (13:09)
== END 2019-04-29 15:16 | DRG 190 ==
LOC: ER 13:40 → EDBEDREQSVC 14:21 → EDBEDREQ 14:21 → EDBEDREQTM 15:46 → EDBEDREQSVC 15:46 → ENRESERV 19:14 → 3WST 20:28
PROVIDERS: ADMIT Internal Medicine; ATTEND Internal Medicine
PROC: 5A1D70Z Performance of Urinary Filtration, Intermittent, Less than 6 Hours Per Day (ICD-10-PCS; 2019-04-26)
PROC: 5A1D70Z Performance of Urinary Filtration, Intermittent, Less than 6 Hours Per Day (ICD-10-PCS; principal; 2019-04-29)
DX: I21.4 Non-ST elevation (NSTEMI) myocardial infarction (principal); I13.2 Hypertensive heart and chronic kidney disease with heart failure and with stage 5 chronic kidney disease, or end stage renal disease; E11.22 Type 2 diabetes mellitus with diabetic chronic kidney disease; N18.6 End stage renal disease; D69.6 Thrombocytopenia, unspecified; Z86.74 Personal history of sudden cardiac arrest; I47.1 Supraventricular tachycardia; I25.5 Ischemic cardiomyopathy; I48.91 Unspecified atrial fibrillation; G40.909 Epilepsy, unspecified, not intractable, without status epilepticus; D63.8 Anemia in other chronic diseases classified elsewhere; R07.2 Precordial pain; I25.10 Atherosclerotic heart disease of native coronary artery without angina pectoris; I50.9 Heart failure, unspecified; R26.9 Unspecified abnormalities of gait and mobility; J44.9 Chronic obstructive pulmonary disease, unspecified; Z79.82 Long term (current) use of aspirin; Z82.49 Family history of ischemic heart disease and other diseases of the circulatory system; Z86.73 Personal history of transient ischemic attack (TIA), and cerebral infarction without residual deficits; Z87.19 Personal history of other diseases of the digestive system; Z87.891 Personal history of nicotine dependence; Z95.0 Presence of cardiac pacemaker; Z99.2 Dependence on renal dialysis; Z95.5 Presence of coronary angioplasty implant and graft; Z88.0 Allergy status to penicillin; Z88.8 Allergy status to other drugs, medicaments and biological substances; Z79.899 Other long term (current) drug therapy
CPT/HCPCS: 36415; 71045; 80048; 80053; 82607; 83540; 83550; 83735; 84100; 84443; 84484; 85025; 85044; 92523; 92610; 93005; 93306; 94640; 99291; J1200; J2270; J2405; J3490

== ENCOUNTER 2019-05-21 06:35 | Inpatient (IN) | payer MEDICAID ==
[2019-05-21] VITALS (7 sets, daily range): BP systolic 134–142; BP diastolic 65–81
[~2019-05-21] VITALS: Ht 162.6 cm; Wt 65.8 kg
[~2019-05-21 06:35] MED LIST changes: -AMLO-79 PO; +AMLO5TAB88 PO; -ASPI-1497 PO; +ATOR20TA65 PO; -CALC667C4 PO; -CLON0.3T PO; -CLOP75TA4 PO; -FOLI1TAB33 PO; +GABA-529 MT; -GABA300S PO; +HYDR-3280 MT; -HYDR-3280 PO; +HYDR-4135 PO; -HYDR100T31 PO; -LEVE750T4 MT; +LEVE750T4 PO; +LEVO500T2 MT; -MINO2.5T19 PO; +MINO2.5T2 PO; -Metoprolol Tartrate PO; -REN800 MT
[2019-05-21 07:19] LABS: HEMATOCRIT. 26.7 % (42.0-52.0); HEMOGLOBIN. 8.8 g/dL (14.0-18.0); MEAN CORPUSCULAR HEMOGLOBIN 32.9 pg (28.0-32.0); MEAN CORPUSCULAR VOLUME 99.5 fL (80.0-94.0); MEAN PLATELET VOLUME 8.7 fl (7.4-10.4); PLATELET 237 x1000/uL (130-400); RED BLOOD CELL COUNT 2.68 mill/uL (4.7-6.1)
[2019-05-21 07:23] LABS: CHLORIDE 97 mEq/L (98-107)
[2019-05-21] MEDS ORDERED: LEVOFLOXACIN 750MG PREMIX 150 ML IV ONE (08:00)
[2019-05-21 08:01] LABS: PLATELET ESTIMATE NORMAL
[2019-05-21 08:24] LABS: BG BILEVEL POS AIRWAY PRESSURE 15/5; BG CARBOXYHEMOGLOBIN 1.1 % (0.5-1.5); BG DEOXYHEMOGLOBIN 8.1 % (0.0-5.0); BG HCO3 ACT 19.6 mmol/L (22.0-26.0); BG METHEMOGLOBIN 0.3 % (0.0-1.5); BG OXYGEN SATURATION 91.8 % (92.0-98.5); BG OXYHEMOGLOBIN 90.5 % (94.0-97.0); BG PCO2 34.1 mmHg (35.0-45.0); BG PH 7.377 (7.350-7.450); BG PO2 73.8 mmHg (75.0-100.0); BG SAMPLE SITE RIGHT BRACHIAL; BG TOTAL HEMOGLOBIN 8.1 g/dL (12.0-18.0); BG VENT MODE MASK - BIPAP; BG VENT RATE 16 set
[2019-05-21] MEDS ORDERED: MORPHINE SULFATE 2 MG/ML CPJ (NOT FOR IM USE) IV PRN (10:30)
[2019-05-21] MEDS ORDERED: LIDOCAINE HCL/PF 1% 2ML VIAL ONE (10:33)
[2019-05-21] MEDS ORDERED: BENZONATATE 100MG CAPSULE PO PRN (11:15)
[2019-05-21] MEDS ORDERED: LEVOFLOXACIN 250MG PREMIX 50 ML IV SCH (11:15)
[2019-05-21] MEDS ORDERED: ACETAMINOPHEN 325MG TABLET PO PRN (11:15)
[2019-05-21] MEDS ORDERED: ONDANSETRON HCL 4MG/2ML INJ IV PRN (11:15)
[2019-05-21] MEDS: METHYLPREDNISOLONE SOD SUCC 40 MG/ML VIAL IV SCH ×2 (15:53→22:32)
[2019-05-21] MEDS: IPRATROPIUM/ALBUTEROL 0.5-3(2.5)MG/3ML NEB HHN SCH ×3 (16:20→23:45)
[2019-05-21] MEDS: DIPHENHYDRAMINE 50MG/ML VIAL IV PRN (19:00)
[2019-05-21] MEDS: AMLODIPINE 5MG TABLET PO SCH (22:32)
[2019-05-22] VITALS (13 sets, daily range): BP systolic 120–152; BP diastolic 70–92
[2019-05-22] MEDS: DIPHENHYDRAMINE 50MG/ML VIAL IV PRN ×2 (00:48→21:07)
[2019-05-22] MEDS: IPRATROPIUM/ALBUTEROL 0.5-3(2.5)MG/3ML NEB HHN SCH ×5 (04:37→19:58)
[2019-05-22] MEDS: METHYLPREDNISOLONE SOD SUCC 40 MG/ML VIAL IV SCH ×3 (06:13→21:00)
[2019-05-22 07:23] LABS: HEMATOCRIT. 22.4 % (42.0-52.0); HEMOGLOBIN. 7.5 g/dL (14.0-18.0); MEAN CORPUSCULAR HEMOGLOBIN 32.8 pg (28.0-32.0); MEAN CORPUSCULAR VOLUME 98.3 fL (80.0-94.0); MEAN PLATELET VOLUME 8.4 fl (7.4-10.4); PLATELET 148 x1000/uL (130-400); RED BLOOD CELL COUNT 2.28 mill/uL (4.7-6.1); RED CELL DISTRIBUTION WIDTH 18.3 % (11.6-14.6)
[2019-05-22] MEDS: AMLODIPINE 5MG TABLET PO SCH ×2 (08:32→20:55)
[2019-05-22 11:55] LABS: PLATELET ESTIMATE NORMAL
[2019-05-23] VITALS (11 sets, daily range): BP systolic 124–150; BP diastolic 72–84
[2019-05-23] MEDS: IPRATROPIUM/ALBUTEROL 0.5-3(2.5)MG/3ML NEB HHN SCH ×6 (00:02→20:02)
[2019-05-23] MEDS: METHYLPREDNISOLONE SOD SUCC 40 MG/ML VIAL IV SCH (05:02)
[2019-05-23 06:55] LABS: HEMATOCRIT. 22.3 % (42.0-52.0); HEMOGLOBIN. 7.3 g/dL (14.0-18.0); MEAN CORPUSCULAR HEMOGLOBIN 32.4 pg (28.0-32.0); MEAN CORPUSCULAR VOLUME 99.4 fL (80.0-94.0); MEAN PLATELET VOLUME 8.5 fl (7.4-10.4); PLATELET 160 x1000/uL (130-400); RED BLOOD CELL COUNT 2.25 mill/uL (4.7-6.1); RED CELL DISTRIBUTION WIDTH 18.8 % (11.6-14.6)
[2019-05-23 09:05] LABS: BG BASE EXCESS -4.1 mmol/L (-2.0-2.0); BG CARBOXYHEMOGLOBIN 0.5 % (0.5-1.5); BG DEOXYHEMOGLOBIN 7.7 % (0.0-5.0); BG FRACTION INSPIRED OXYGEN 32; BG HCO3 ACT 20.9 mmol/L (22.0-26.0); BG METHEMOGLOBIN 0.3 % (0.0-1.5); BG OXYGEN SATURATION 92.2 % (92.0-98.5); BG OXYHEMOGLOBIN 91.5 % (94.0-97.0); BG PCO2 37.5 mmHg (35.0-45.0); BG PH 7.363 (7.350-7.450); BG SAMPLE SITE RIGHT BRACHIAL; BG TOTAL HEMOGLOBIN 8.2 g/dL (12.0-18.0); BG VENT MODE NASAL CANNULA
[2019-05-23] MEDS: AMLODIPINE 5MG TABLET PO SCH ×2 (09:07→19:59)
[2019-05-23] MEDS ORDERED: DIPHENHYDRAMINE 50MG CAPSULE PO PRN (11:30)
[2019-05-23] MEDS: DIPHENHYDRAMINE 50MG/ML VIAL IV PRN (11:52)
[2019-05-23 12:05] LABS: PLATELET ESTIMATE NORMAL
[2019-05-23] MEDS: CARVEDILOL 3.125 MG TABLET PO SCH ×2 (12:30→20:00)
[2019-05-23] MEDS: LEVOFLOXACIN 250MG PREMIX 50 ML IV SCH (16:51)
[2019-05-24] VITALS (15 sets, daily range): BP systolic 107–157; BP diastolic 49–102
[2019-05-24] MEDS: IPRATROPIUM/ALBUTEROL 0.5-3(2.5)MG/3ML NEB HHN SCH ×6 (00:04→23:39)
[2019-05-24 06:51] LABS: BASOPHILS % 0.2 % (0.0-2.0); EOSINOPHILS % 0.5 % (0.0-5.0); HEMATOCRIT. 23.6 % (42.0-52.0); HEMOGLOBIN. 7.9 g/dL (14.0-18.0); LYMPHOCYTES % 10.1 % (20.0-50.0); MEAN CORPUSCULAR HEMOGLOBIN 32.4 pg (28.0-32.0); MEAN CORPUSCULAR VOLUME 97.2 fL (80.0-94.0); MEAN PLATELET VOLUME 8.4 fl (7.4-10.4); MONOCYTES % 6.4 % (2.0-8.0); NEUTROPHILS % 82.8 % (40.0-76.0); PLATELET 187 x1000/uL (130-400); RED BLOOD CELL COUNT 2.43 mill/uL (4.7-6.1); RED CELL DISTRIBUTION WIDTH 18.3 % (11.6-14.6)
[2019-05-24] MEDS: AMLODIPINE 5MG TABLET PO SCH ×2 (08:15→21:13)
[2019-05-24] MEDS: CARVEDILOL 3.125 MG TABLET PO SCH ×2 (08:15→21:14)
[2019-05-24] MEDS ORDERED: PREDNISONE 20MG TABLET PO SCH (09:00)
[2019-05-24] MEDS ORDERED: FUROSEMIDE 20MG/2ML VIAL IVP SCH (09:30)
[2019-05-24] MEDS: DIPHENHYDRAMINE 50MG/ML VIAL IV PRN (10:07)
[2019-05-25] VITALS (19 sets, daily range): BP systolic 111–161; BP diastolic 59–108
[2019-05-25] MEDS: IPRATROPIUM/ALBUTEROL 0.5-3(2.5)MG/3ML NEB HHN SCH ×5 (03:33→21:00)
[2019-05-25 06:21] LABS: BASOPHILS % 0.2 % (0.0-2.0); EOSINOPHILS % 1.3 % (0.0-5.0); HEMATOCRIT. 27.1 % (42.0-52.0); LYMPHOCYTES % 11.2 % (20.0-50.0); MEAN CORPUSCULAR HEMOGLOBIN 32.5 pg (28.0-32.0); MEAN CORPUSCULAR VOLUME 97.5 fL (80.0-94.0); MEAN PLATELET VOLUME 7.9 fl (7.4-10.4); MONOCYTES % 9.7 % (2.0-8.0); NEUTROPHILS % 77.6 % (40.0-76.0); PLATELET 217 x1000/uL (130-400); RED BLOOD CELL COUNT 2.77 mill/uL (4.7-6.1); RED CELL DISTRIBUTION WIDTH 17.8 % (11.6-14.6)
[2019-05-25] MEDS: PREDNISONE 20MG TABLET PO SCH (08:33)
[2019-05-25] MEDS: AMLODIPINE 5MG TABLET PO SCH ×2 (08:33→20:57)
[2019-05-25] MEDS: CARVEDILOL 3.125 MG TABLET PO SCH ×2 (08:33→20:56)
[2019-05-25] MEDS: DIPHENHYDRAMINE 50MG/ML VIAL IV PRN ×2 (09:38→20:57)
[2019-05-25] MEDS: LEVOFLOXACIN 250MG PREMIX 50 ML IV SCH (11:58)
[2019-05-25 13:00] LABS: INR 1.2; PARTIAL THROMBOPLASTIN TIME 26.4 sec (23.4-31.0); PROTHROMBIN TIME 12.7 sec (9.6-11.0)
[2019-05-25] MEDS ORDERED: SODIUM BICARBONATE 4% (2.4MEQ) 5ML VIAL IV ONE (13:31)
[2019-05-25] MEDS ORDERED: LACTULOSE 20G/30ML UDC PO PRN (21:00)
[2019-05-26] VITALS (12 sets, daily range): BP systolic 99–144; BP diastolic 54–180
[2019-05-26] MEDS: IPRATROPIUM/ALBUTEROL 0.5-3(2.5)MG/3ML NEB HHN SCH ×4 (00:59→16:38)
[2019-05-26 07:11] LABS: BASOPHILS % 0.2 % (0.0-2.0); EOSINOPHILS % 3.2 % (0.0-5.0); HEMATOCRIT. 28.3 % (42.0-52.0); HEMOGLOBIN. 9.6 g/dL (14.0-18.0); LYMPHOCYTES % 16.2 % (20.0-50.0); MEAN CORPUSCULAR HEMOGLOBIN 32.9 pg (28.0-32.0); MEAN CORPUSCULAR VOLUME 96.6 fL (80.0-94.0); MEAN PLATELET VOLUME 8.1 fl (7.4-10.4); MONOCYTES % 9.4 % (2.0-8.0); PLATELET 229 x1000/uL (130-400); RED BLOOD CELL COUNT 2.93 mill/uL (4.7-6.1); RED CELL DISTRIBUTION WIDTH 17.9 % (11.6-14.6)
[2019-05-26] MEDS: AMLODIPINE 5MG TABLET PO SCH (08:26)
[2019-05-26] MEDS: CARVEDILOL 3.125 MG TABLET PO SCH (08:26)
[2019-05-26] MEDS: PREDNISONE 20MG TABLET PO SCH (08:26)
[2019-05-26] MEDS: DIPHENHYDRAMINE 50MG/ML VIAL IV PRN (15:28)
[2019-05-27] MEDS ORDERED: LEVOFLOXACIN 250MG TABLET PO SCH (11:00)
== END 2019-05-26 18:19 | DRG 720 ==
LOC: ER 06:35 → ENRESERV 12:05 → 3WST 12:48
PROVIDERS: ADMIT Internal Medicine; ATTEND Internal Medicine
PROC: 5A09357 Assistance with Respiratory Ventilation, Less than 24 Consecutive Hours, Continuous Positive Airway Pressure (ICD-10-PCS; 2019-05-21)
PROC: 5A09357 Assistance with Respiratory Ventilation, Less than 24 Consecutive Hours, Continuous Positive Airway Pressure (ICD-10-PCS; 2019-05-22)
PROC: 5A1D70Z Performance of Urinary Filtration, Intermittent, Less than 6 Hours Per Day (ICD-10-PCS; 2019-05-23)
PROC: 5A09357 Assistance with Respiratory Ventilation, Less than 24 Consecutive Hours, Continuous Positive Airway Pressure (ICD-10-PCS; 2019-05-23)
PROC: 5A1D70Z Performance of Urinary Filtration, Intermittent, Less than 6 Hours Per Day (ICD-10-PCS; principal; 2019-05-24)
PROC: 0W9B3ZZ Drainage of Left Pleural Cavity, Percutaneous Approach (ICD-10-PCS; 2019-05-25)
DX: A41.9 Sepsis, unspecified organism (principal); J96.00 Acute respiratory failure, unspecified whether with hypoxia or hypercapnia; I13.2 Hypertensive heart and chronic kidney disease with heart failure and with stage 5 chronic kidney disease, or end stage renal disease; J18.9 Pneumonia, unspecified organism; N18.6 End stage renal disease; E11.22 Type 2 diabetes mellitus with diabetic chronic kidney disease; K29.71 Gastritis, unspecified, with bleeding; I27.20 Pulmonary hypertension, unspecified; E87.8 Other disorders of electrolyte and fluid balance, not elsewhere classified; E87.1 Hypo-osmolality and hyponatremia; F41.9 Anxiety disorder, unspecified; E87.5 Hyperkalemia; D64.9 Anemia, unspecified; J44.1 Chronic obstructive pulmonary disease with (acute) exacerbation; I25.10 Atherosclerotic heart disease of native coronary artery without angina pectoris; G40.909 Epilepsy, unspecified, not intractable, without status epilepticus; E78.5 Hyperlipidemia, unspecified; I25.5 Ischemic cardiomyopathy; I50.41 Acute combined systolic (congestive) and diastolic (congestive) heart failure; J44.0 Chronic obstructive pulmonary disease with (acute) lower respiratory infection; I48.0 Paroxysmal atrial fibrillation; I34.0 Nonrheumatic mitral (valve) insufficiency; K29.81 Duodenitis with bleeding; Z86.73 Personal history of transient ischemic attack (TIA), and cerebral infarction without residual deficits; Z99.2 Dependence on renal dialysis; I25.2 Old myocardial infarction; Z95.5 Presence of coronary angioplasty implant and graft; Z99.81 Dependence on supplemental oxygen; Z88.1 Allergy status to other antibiotic agents; Z88.0 Allergy status to penicillin; Z88.8 Allergy status to other drugs, medicaments and biological substances; Z79.2 Long term (current) use of antibiotics; Z79.899 Other long term (current) drug therapy
CPT/HCPCS: 32555; 36415; 36600; 71045; 76604; 80048; 80053; 82375; 82805; 83735; 83880; 84484; 85025; 86850; 86900; 87804; 93005; 93306; 94640; 94660; 99285; J1200; J1956; J2270; J2920; J3490; J7512; Q0163